=== PATIENT | female | born 1955 | race Caucasian/White ===

== ENCOUNTER 2018-02-01 10:41 | Outpatient (CLI) | payer MEDICARE | END 2018-02-01 10:42 | disposition home or self-care (01) | LOC: BICMRI 10:41 | PROVIDERS: ATTEND Ophthalmology | DX: S93.324A Dislocation of tarsometatarsal joint of right foot, initial encounter (principal); M19.071 Primary osteoarthritis, right ankle and foot ==

== ENCOUNTER 2018-02-02 11:06 | Outpatient (CLI) | payer MEDICARE | END 2018-02-02 11:07 | disposition home or self-care (01) | LOC: BICCT 11:06 | PROVIDERS: ATTEND Family Medicine | DX: F17.210 Nicotine dependence, cigarettes, uncomplicated (principal); J43.9 Emphysema, unspecified; I25.10 Atherosclerotic heart disease of native coronary artery without angina pectoris; I70.0 Atherosclerosis of aorta; Z98.890 Other specified postprocedural states; Z90.49 Acquired absence of other specified parts of digestive tract | CPT/HCPCS: G0297 ==

== ENCOUNTER 2018-03-20 22:11 | Emergency (ER) | payer MEDICARE ==
[2018-03-21 04:20] LABS: Anion Gap 19 mmol/L (10-20); BUN (Urea Nitrogen) 4 mg/dL (9.8-20.1); Calc. Creatinine Clearance 0 mL/min (70-130); Calcium 10.3 mg/dL (7.8-10.44); Carbon Dioxide 23 mmol/L (22-29); Chloride 101 mmol/L (98-107); Estimated GFR-MDRD 87; Glucose 112 mg/dL (70-105); Potassium 3.5 mmol/L (3.5-5.1); Sodium 139 mmol/L (136-145)
[2018-03-21 04:22] LABS: CKMB 2.1 ng/mL (0-6.6); Troponin I Less than 0.010 ng/mL (< 0.028)
[2018-03-21] MEDS ORDERED: cloNIDine 0.1 MG TAB ONE (04:40)
[2018-03-21 06:04] LABS: Troponin I Less than 0.010 ng/mL (< 0.028)
--- NOTE | 2018-03-21 09:23 | RAD ---
ONE VIEW CHEST: HISTORY: Hypertension. COMPARISON: 01/29/13. FINDINGS: Portable upright chest demonstrates a normal cardiac silhouette. The pulmonary vessels and hilum are normal. Costophrenic angles are clear. No masses or consolidation. No pneumothorax or osseous abn ormalities. IMPRESSION: No acute cardiopulmonary process. POS: [facility]
--- NOTE | 2018-03-22 14:15 | EKG ---
Test Reason : Blood Pressure : / mmHG Vent. Rate : 084 BPM Atrial Rate : 084 BPM P-R Int : 130 ms QRS Dur : 086 ms QT Int : 394 ms P-R-T Axes : 056 028 -38 degrees QTc Int : 465 ms Normal sinus rhythm Possible Left atrial enlargement Anterior infarct , age undetermined Abnormal ECG Confirmed by ANNA SANTANA ([id number]), international editorial producer MAHAD THORNTON ([id number]) on 03/22/2018 2:15:35 PM Referred By: Confirmed By:ANNA SANTANA
--- NOTE | 2018-03-22 14:15 | EKG ---
Test Reason : Blood Pressure : / mmHG Vent. Rate : 082 BPM Atrial Rate : 082 BPM P-R Int : 140 ms QRS Dur : 084 ms QT Int : 410 ms P-R-T Axes : 050 011 -23 degrees QTc Int : 479 ms Normal sinus rhythm Minimal voltage criteria for LVH, may be normal variant Anterior infarct , age undetermined Abnormal ECG Confirmed by ANNA SANTANA ([id number]), development editor MAHAD THORNTON ([id number]) on 03/22/2018 2:15:36 PM Referred By: HTN Confirmed By:ANNA SANTANA
== END 2018-03-21 05:30 | disposition home or self-care (01) ==
LOC: ERS 22:11
DX: I10 Essential (primary) hypertension (principal); I25.10 Atherosclerotic heart disease of native coronary artery without angina pectoris; E78.5 Hyperlipidemia, unspecified; J44.9 Chronic obstructive pulmonary disease, unspecified; F41.9 Anxiety disorder, unspecified; F17.210 Nicotine dependence, cigarettes, uncomplicated; Z79.899 Other long term (current) drug therapy; Z79.82 Long term (current) use of aspirin
CPT/HCPCS: 36415; 71045; 80048; 82553; 84484; 93005; 94760

== ENCOUNTER 2019-06-30 09:46 | Outpatient (CLI) | payer MEDICARE ==
--- NOTE | 2019-06-30 10:40 | MMO ---
Bilateral MAMMO Bilat Screen [facility]. CLINICAL HISTORY: Patient is 64 years old and is seen for screening. The patient has the following family history of breast cancer: mother. The patient has no personal history of cancer. VIEWS: The views performed were: bilateral craniocaudal with tomosynthesis and bilateral mediolateral oblique with tomosynthesis. FILMS COMPARED: The present examination has been compared to prior imaging studies performed at [facility] on 01/05/2012, at [facility] on 02/19/2016, and at [facility] on 08/02/2013. MAMMOGRAM FINDINGS: There are scattered fibroglandular densities. There is a stable intramammary lymph node seen in the upper-outer region of the right breast. There are no suspicious masses, suspicious calcifications, or new areas of architectural distortion. IMPRESSION: THERE IS NO MAMMOGRAPHIC EVIDENCE OF MALIGNANCY. A ROUTINE FOLLOW-UP MAMMOGRAM IN 1 YEAR IS RECOMMENDED. THE RESULTS OF THIS EXAM WERE SENT TO THE PATIENT. ACR BI-RADS Category 2 - Benign finding MAMMOGRAPHY NOTE: 1. A negative mammogram report should not delay a biopsy if a dominant of clinically suspicious mass is present. 2. Approximately 10% to 15% of breast cancers are not detected by mammography. 3. Adenosis and dense breasts may obscure an underlying neoplasm. Reported by: DANIEL TAYLOR MD Electonically Signed: [id number]
== END 2019-06-30 09:47 | disposition home or self-care (01) ==
LOC: BICMAMMO 09:46
PROVIDERS: ATTEND Family Medicine
DX: Z12.31 Encounter for screening mammogram for malignant neoplasm of breast (principal); Z80.9 Family history of malignant neoplasm, unspecified
CPT/HCPCS: 77063; 77067

== ENCOUNTER 2019-10-21 22:06 | Inpatient (IN) | payer MEDICARE ==
[2019-10-21] MEDS ORDERED: Magnesium 2 GM/50 ML BAG (IN WATER) ONE (22:40)
[2019-10-21] MEDS ORDERED: methylPREDNISolone Sod Succ/PF 125 MG/2 ML VIAL ONE (22:40)
--- NOTE | 2019-10-21 22:49 | RAD ---
Portable frontal chest radiograph: 10/21/2019 COMPARISON: 03/21/2018 HISTORY: Difficulty breathing FINDINGS: No focal consolidation or alveolar edema. Stable prominence of the cardiac silhouette. Post operative clips are noted in the right upper quadrant. There is faint atherosclerotic calcification of the aortic arch. IMPRESSION: No focal consolidation or alveolar edema.
[2019-10-21 22:55] LABS: #Basophils 0.1 thou/uL (0.0-0.2); #Eosinphils 0.4 thou/uL (0.0-0.7); #Lymphocytes 1.5 thou/uL (1.20-3.40); #Monocytes 0.8 thou/uL (0.11-0.59); #Neutrophils 8.7 thou/uL (1.40-6.50); %Basophils 0.5 % (0.0-1.0); %Eosinophils 3.1 % (0.0-10.0); %Lymphocytes 12.9 % (21.0-51.0); %Monocytes 7.2 % (0.0-10.0); %Neutrophils 76.3 % (42.0-75.0); Hemoglobin 12.8 g/dL (12.0-16.0); Mean Corpuscular HGB CONC 34.4 g/dL (32.0-36.0); Mean Corpuscular Hemoglobin 29.8 pg (27.0-31.0); Mean Corpuscular Volume 86.7 fL (78.0-98.0); Mean Platelet Volume 6.7 fL (7.4-10.4); Platelet Count 445 thou/uL (130-400); RBC Distribution Width 11.5 % (11.5-14.5); Red Blood Cell (RBC) Count 4.28 mill/uL (4.20-5.40); White Blood Cell (WBC) Count 11.4 thou/uL (4.8-10.8)
[2019-10-21] MEDS ORDERED: Ondansetron ODT 4 MG TAB ONE (23:15)
[2019-10-21 23:19] LABS: ALT (SGPT) 14 U/L (8-55); AST (SGOT) 20 U/L (5-34); Albumin 3.9 g/dL (3.4-4.8); Alkaline Phosphatase 83 U/L (40-110); Anion Gap 16 mmol/L (10-20); BUN (Urea Nitrogen) 5 mg/dL (9.8-20.1); Bilirubin, Total 0.6 mg/dL (0.2-1.2); Calc. Creatinine Clearance 0 mL/min (70-130); Calcium 8.9 mg/dL (7.8-10.44); Carbon Dioxide 24 mmol/L (23-31); Chloride 100 mmol/L (98-107); Estimated GFR-MDRD 82; Globulin 3.2 g/dL (2.4-3.5); Glucose 105 mg/dL (80-115); Lipase 9 U/L (8-78); Magnesium 1.9 mg/dL (1.6-2.6); Potassium 4.1 mmol/L (3.5-5.1); Protein, Total 7.1 g/dL (6.0-8.3); Sodium 136 mmol/L (136-145)
[2019-10-21 23:39] LABS: CKMB 0.6 ng/mL (0-6.6)
[2019-10-22 03:00] LABS: Troponin I Less than 0.010 ng/mL (< 0.028)
[2019-10-22] MEDS ORDERED: Lactated Ringer's 1,000 ML IV SCH (05:45)
[2019-10-22 06:14] VITALS: BMI 37.8
[2019-10-22 06:35] LABS: Troponin I 0.037 ng/mL (< 0.028)
--- NOTE | 2019-10-22 07:58 | CT ---
PRELIMINARY REPORT/[facility]/EMERGENCY AFTER HOURS PROCEDURE EXAM: CTA Chest with Intravenous Contrast CLINICAL HISTORY: ELEVATED D-DIMER: 1.33; 64F reports to ED c/o SOB and difficulty breathing. PMHx CO PD and asthma. nausea, lack of appetite for several weeks. Pt denies nausea. Pt reports she has an ap pointment with GI PA on 10/25, referral from PCP. 85% on RA, 99 after duo neb. PMSx cholecystectomy TECHNIQUE: Axial CTA images of the chest with intravenous contrast. MIP reconstructed images were cre ated and reviewed. IV leak during injection reported by the technologist.. Exam DLP is 589.85. CONTRAST: With; 95ML ISOVUE 370 intravenous. COMPARISON: None provided. FINDINGS: PULMONARY ARTERIES: Contrast bolus not adequate for detection of small subsegmental PE. There are no large pulmonary artery filling defects suspicious for PE. AORTA: Aberrant right subclavian artery posterior to the esophagus with diverticulum and coverall. Sc lerosis of the thoracic aorta without aneurysm. LUNGS: Bibasilar atelectasis. No lung mass or focal consolidation. Bilateral apical upper lobe emphys ematous changes. PLEURAL SPACES: No pleural effusion. No pneumothorax. HEART AND MEDIASTINUM:Prominent mediastinal and hilar adenopathy. Cardiomegaly. Coronary atherosclerosis with stents. LYMPH NODES No lymphadenopathy. BONES: Mild multilevel degenerative changes of the spine. No acute fractures or worrisome osseous les ions. CHEST WALL AND UPPER ABDOMEN: Images through the upper abdomen are unremarkable. The chest wall is un remarkable. MISCELLANEOUS: 7 mm left thyroid nodule. IMPRESSION: 1. No evidence of large pulmonary embolism. 2. Coronary artery disease. 3. Aberrant right subclavian artery with retroesophageal course. This can lead to symptoms of Dysph agia (lusoria), dyspnea, or back pain. 4. COPD without focal consolidation. ELECTRONICALLY SIGNED BY: Preet Granados M.D. Oct 22, 2019 1:52:44 AM PROFESSIONAL SOCCER PLAYER FINAL REPORT EMERGENT AFTER HOURS CTA OF THE CHEST WITH CONTRAST: COMPARISON: 12/25/2015. FINDINGS/IMPRESSION: I agree with the findings and impression given in the preliminary report per [facility] physici an. 1. There is no evidence of large pulmonary thromboembolism. This study is limited secondary to an I V leak during the contrast administration. 2. There is an aberrant right subclavian artery.
[2019-10-22] MEDS ORDERED: HYDROcodone/Acetaminophen 5/325 mg Tablet PO PRN (09:53)
[2019-10-22] MEDS ORDERED: Senokot S 8.6-50 MG TAB PO PRN (09:53)
[2019-10-22] MEDS ORDERED: Acetaminophen 325 MG TAB PO PRN (09:53)
[2019-10-22] MEDS ORDERED: Ondansetron PF 4 MG/2 ML Vial IVP PRN (09:53)
[2019-10-22] MEDS ORDERED: Ondansetron ODT 4 MG TAB PO PRN (09:53)
[2019-10-22] MEDS ORDERED: ALPRAZolam 0.25 MG TAB PO PRN (09:57)
[2019-10-22] MEDS ORDERED: Gabapentin 100 MG CAP PO PRN (09:57)
[2019-10-22] MEDS ORDERED: Enoxaparin Sodium 40 MG/0.4 ML SYRINGE SC SCH (10:00)
[2019-10-22] MEDS ORDERED: guaiFENesin ER 600 MG TAB PO SCH (10:30)
[2019-10-22] MEDS: ALPRAZolam 0.25 MG TAB PO PRN (17:26)
[2019-10-22 17:33] LABS: Troponin I 0.022 ng/mL (< 0.028)
[2019-10-22] MEDS: Meclizine HCl 25 MG TAB PO SCH (20:15)
[2019-10-22] MEDS: Hydroxychloroquine Sulfate 200 MG TAB PO SCH (20:15)
[2019-10-22] MEDS: guaiFENesin ER 600 MG TAB PO SCH (20:15)
[2019-10-22] MEDS: Doxycycline 100 MG CAP PO SCH (20:15)
[2019-10-22] MEDS: Famotidine/PF 20 mg/2ml Vial SLOW IVP SCH (20:16)
[2019-10-22] MEDS: Famotidine 20 MG TAB PO SCH (20:16)
[2019-10-22] MEDS: [UNRECOGNIZED DRUG - OTHER] PO SCH (20:18)
[2019-10-22] MEDS ORDERED: Nortriptyline 10 MG CAP PO SCH (21:00)
[2019-10-22 23:19] LABS: Troponin I 0.077 ng/mL (< 0.028)
[2019-10-23 05:35] LABS: #Lymphocytes 1.3 thou/uL (1.20-3.40); #Neutrophils 10.8 thou/uL (1.40-6.50); %Basophils 0.1 % (0.0-1.0); %Eosinophils 0.3 % (0.0-10.0); %Lymphocytes 9.7 % (21.0-51.0); %Monocytes 7.3 % (0.0-10.0); %Neutrophils 82.6 % (42.0-75.0); Hemoglobin 11.3 g/dL (12.0-16.0); Mean Corpuscular HGB CONC 34.1 g/dL (32.0-36.0); Mean Corpuscular Hemoglobin 29.8 pg (27.0-31.0); Mean Corpuscular Volume 87.2 fL (78.0-98.0); Mean Platelet Volume 6.7 fL (7.4-10.4); Platelet Count 407 thou/uL (130-400); RBC Distribution Width 11.5 % (11.5-14.5); Red Blood Cell (RBC) Count 3.79 mill/uL (4.20-5.40)
[2019-10-23 05:55] LABS: Anion Gap 12 mmol/L (10-20); BUN (Urea Nitrogen) 6 mg/dL (9.8-20.1); Calc. Creatinine Clearance 164 mL/min (70-130); Calcium 8.8 mg/dL (7.8-10.44); Carbon Dioxide 25 mmol/L (23-31); Chloride 105 mmol/L (98-107); Estimated GFR-MDRD Greater than 90; Glucose 99 mg/dL (80-115); Potassium 4.2 mmol/L (3.5-5.1); Sodium 138 mmol/L (136-145)
[2019-10-23] MEDS: [UNRECOGNIZED DRUG - OTHER] PO SCH ×2 (08:43→20:40)
[2019-10-23] MEDS: Famotidine 20 MG TAB PO SCH ×2 (09:42→22:01)
[2019-10-23] MEDS: Enoxaparin Sodium 40 MG/0.4 ML SYRINGE SC SCH (09:43)
[2019-10-23] MEDS: guaiFENesin ER 600 MG TAB PO SCH ×2 (09:43→21:55)
[2019-10-23] MEDS: Doxycycline 100 MG CAP PO SCH ×2 (09:43→21:55)
[2019-10-23] MEDS: Hydroxychloroquine Sulfate 200 MG TAB PO SCH ×2 (09:43→21:55)
[2019-10-23] MEDS: Aspirin 81 mg Enteric Coated Tablet PO SCH (09:43)
[2019-10-23] MEDS: Famotidine/PF 20 mg/2ml Vial SLOW IVP SCH ×2 (09:43→22:01)
[2019-10-23] MEDS: predniSONE 20 MG TAB PO SCH (09:43)
[2019-10-23] MEDS: Nortriptyline HCl 25 MG CAP PO SCH (21:54)
[2019-10-23] MEDS: Nortriptyline 10 MG CAP PO SCH (21:55)
[2019-10-23] MEDS: Meclizine HCl 25 MG TAB PO SCH (21:56)
[2019-10-23] MEDS: ALPRAZolam 0.25 MG TAB PO PRN (21:58)
[2019-10-24 05:33] LABS: Troponin I 0.078 ng/mL (< 0.028)
--- NOTE | 2019-10-24 08:14 | PRG ---
DATE OF SERVICE: 10/23/2019 SUBJECTIVE: A 64-year-old female with COPD and coronary artery disease, admitted due to worsening shortness of breath. The patient also was found to be hypoxic and was started on oxygen supplementation. Impression of COPD exacerbation was made, and the patient was started on antibiotics, bronchodilators, and steroid. Troponin was also found to be elevated. Feeling better. Denied fever. OBJECTIVE: VITAL SIGNS: Temperature 98.9, pulse 100, respiratory rate 16, SpO2 of 94% on 3 L nasal cannula, blood pressure 132/72. GENERAL: Female, in no obvious distress. Afebrile. Anicteric. Acyanotic. HEENT: Normocephalic, atraumatic. Oral mucosa is moist. CARDIOVASCULAR: Regular rhythm and rate with normal heart sounds 1 and 2. RESPIRATORY: Fair air entry bilaterally with some transmitted breath sounds. Work of breathing is not increased. GI: Obese, soft, nontender, nondistended with normal bowel sounds. EXTREMITIES: Grossly normal looking atraumatic with no obvious edema or erythema. TOOTH CUTTER CONTACT WHEEL: Conscious, alert, and oriented x3 with appropriate mental status. Cranial nerves 2 through 12 are grossly intact. DIAGNOSTIC DATA: CBC showed WBC count of 13.0, hemoglobin of 11.3, MCV of 87.2, platelets of 407. BMP showed sodium 138, potassium 4.2, chloride 105, CO2 of 25, BUN 6, creatinine 0.58, glucose 99, calcium 8.8. Troponin has been up and down with some numbers being less than 0.010 with others being up to 0.077. ASSESSMENT: 1. Acute respiratory failure with hypoxia. 2. Chronic obstructive pulmonary disease with acute exacerbation. 3. Coronary artery disease, status post myocardial infarction in the past. 4. Obesity. 5. Chronic pain. 6. Prior history of Clostridium difficile, status post fecal transplant. 7. Hypertension. PLAN: 1. Continue bronchodilators, antibiotics, and steroids. 2. Continue probiotics as well. 3. Get echocardiogram in view of mildly elevated troponin. We will also plan to get nuclear stress test. 4. Further treatment to follow depending on hospital course. 5. Wean oxygen as tolerated. Job ID: [id number]
[2019-10-24 08:57] LABS: Anion Gap 14 mmol/L (10-20); BUN (Urea Nitrogen) 7 mg/dL (9.8-20.1); Calc. Creatinine Clearance 164 mL/min (70-130); Calcium 9.2 mg/dL (7.8-10.44); Carbon Dioxide 26 mmol/L (23-31); Chloride 102 mmol/L (98-107); Estimated GFR-MDRD Greater than 90; Glucose 61 mg/dL (80-115); Sodium 138 mmol/L (136-145)
[2019-10-24] MEDS: [UNRECOGNIZED DRUG - OTHER] PO SCH ×2 (09:07→20:12)
[2019-10-24] MEDS: Aspirin 81 mg Enteric Coated Tablet PO SCH (10:55)
[2019-10-24] MEDS: Famotidine 20 MG TAB PO SCH ×2 (10:55→21:21)
[2019-10-24] MEDS: Doxycycline 100 MG CAP PO SCH ×2 (10:55→21:16)
[2019-10-24] MEDS: Famotidine/PF 20 mg/2ml Vial SLOW IVP SCH ×2 (10:55→21:21)
[2019-10-24] MEDS: ALPRAZolam 0.25 MG TAB PO PRN (10:56)
[2019-10-24] MEDS: Hydroxychloroquine Sulfate 200 MG TAB PO SCH ×2 (10:56→21:16)
[2019-10-24] MEDS: Enoxaparin Sodium 40 MG/0.4 ML SYRINGE SC SCH (10:56)
[2019-10-24] MEDS: guaiFENesin ER 600 MG TAB PO SCH ×2 (10:56→21:15)
[2019-10-24] MEDS: predniSONE 20 MG TAB PO SCH (10:56)
[2019-10-24] MEDS ORDERED: Famotidine 20 MG TAB PO SCH (14:00)
--- NOTE | 2019-10-24 14:30 | HP ---
PRIMARY CARE PHYSICIAN: Dr. Stefani Lutz. CHIEF COMPLAINT: Worsening shortness of breath and difficulty breathing. HISTORY OF PRESENT ILLNESS: A 64-year-old female with known history of rheumatoid arthritis; psoriasis; COPD; coronary artery disease, status post stent placement; hypertension amongst others; who was brought in by EMS due to worsening shortness of breath and difficulty breathing since 1 week prior to presentation. The patient reported worsening shortness of breath and difficulty breathing as well as cough, generalized malaise and poor oral intake since about a week, which got worse, necessitating the EMS call. The patient was found to be hypoxic when EMS arrived with SpO2 of 85 on room air. She was also noted to be wheezing and was treated with DuoNeb with improvement to 90 SpO2 on room air. The patient was subsequently brought to the ER. There was no history of fever. The patient admitted to subjective chills, nausea, but no vomiting, or diarrhea. She also denied chest pain, palpitations, focal weakness, change in bowel habit, dysuria, hematuria, or leg swelling. On presentation to the ER, patient was found to be tachycardic with heart rate of 103 with initial temperature of 100.3, and SpO2 of 89 on room air. The patient was treated with IV fluid, azithromycin, doxycycline, magnesium sulfate, DuoNeb, and methyl prednisone as well as Zofran and admitted for further evaluation and treatment. Due to worsening shortness of breath and negative chest x-ray on presentation, there was a concern for pulmonary embolism. Hence, the patient had CT angio chest, which however was negative for large pulmonary embolism. Our study was limited due to poor injection. The patient is currently on oxygen and reports feeling a lot better. Cough has been dry and nonproductive. PAST MEDICAL HISTORY: 1. Rheumatoid arthritis. 2. Psoriasis. 3. Coronary artery disease, status post stent placement. 4. Hypertension. 5. COPD. 6. C diff, status post fecal transplant. 7. Anxiety. 8. Obesity. PAST SURGICAL HISTORY: 1. Cholecystectomy. 2. Tubal ligation. 3. Hernia repair. 4. . 5. Cardiac catheterization. FAMILY HISTORY: Significant for coronary artery disease, COPD in both parents. Mother also had breast cancer. SOCIAL HISTORY: The patient lives alone. She is a former smoker that quit about eight months ago. Denied recreational drug use or alcohol. The patient wants to be full code with son being the surrogate decision maker. ALLERGIES AND ADVERSE REACTION: 1. Propoxyphene. 2. Amoxicillin. 3. Bupropion. 4. Fluoxetine. 5. Levofloxacin. 6. Sulfamethazine. 7. Bupropion. 8. Nitrofurantoin. 9. Trimethoprim. HOME MEDICATIONS: 1. Albuterol HFA every 6 hours p.r.n. for shortness of breath. 2. Xanax 0.25 mg p.o. p.r.n. 3. Amlodipine 2.5 mg p.o. daily. 4. Aspirin 81 mg p.o. daily. 5. Clonidine 0.1 mg p.o. p.r.n. for elevation in blood pressure. 6. Gabapentin 100 mg p.o. daily p.r.n. 7. Hydroxychloroquine 200 mg p.o. b.i.d. 8. L. Rhamnosus and Culturelle Probiotics 1 capsule p.o. b.i.d. 9. Lisinopril 40 mg p.o. b.i.d. 10. Meclizine 25 mg p.o. daily at bedtime. 11. p.o. daily at p.m. REVIEW OF SYSTEMS: A 12-point review of system performed was negative other than pertinent positives and negatives included in the history of present illness. PHYSICAL EXAMINATION: VITAL SIGNS: Temperature 97.5, pulse 90, respiratory rate 18, SpO2 of 95% on 4 L nasal cannula, blood pressure is 101/56. GENERAL: Obese female, in no obvious distress. Afebrile. Anicteric. Acyanotic. HEENT: Normocephalic, atraumatic. Oral mucosa is mildly dry. NECK: Supple. Symmetrical with no JVD. CARDIOVASCULAR: Regular rhythm and rate with normal heart sounds S1 and S2. RESPIRATORY: Fair air entry bilaterally with few transmitted breath sounds. No obvious rhonchi were appreciated. Work of breathing is not increased. GI: Obese, soft, nontender, nondistended with normal bowel sounds. EXTREMITIES: Grossly normal looking, atraumatic with no obvious edema or erythema. Distal pulses are palpable. PRODUCTION OPERATIONS INSPECTOR: Conscious, alert, oriented x3 with appropriate mental status. Cranial nerves 2 through 12 are grossly intact. The patient moves all extremities. DIAGNOSTIC DATA: CBC showed WBC count of 11.4, hemoglobin of 12.8, MCV of 86.7, platelet of 445. Neutrophil percent is 76.3 with lymphocyte percentage of 12.9. D-dimer was elevated at 1.33. CMP showed sodium 136, potassium 4.1, chloride 100, CO2 of 24, BUN 5, creatinine 0.72, glucose 105, calcium 8.9. Total bilirubin 0.6, AST 20, ALT 14, alkaline phosphatase 83, total protein 7.1, albumin 3.9, globulin 3.2. Lipase 9. Magnesium 1.9. Initial cardiac enzymes showed CK-MB of 0.6, troponin of 0.035. Repeat troponin 8 hours later was 0.010, but subsequent troponin 3 hours later was 0.037. Chest x-ray showed no focal consolidation or alveolar edema. A CT angio chest with contrast showed no evidence of large pulmonary embolism. Study was said to be limited secondary to IV leak during the contrast administration. Coronary artery disease. Aberrancy subclavian artery with retroesophageal cause as well as COPD without focal consolidation were noted. ASSESSMENT: 1. Acute respiratory failure with hypoxia. 2. Chronic obstructive pulmonary disease with acute exacerbation. 3. Rheumatoid arthritis, on treatment. 4. Psoriasis. 5. Coronary artery disease with prior stent placement. 6. Elevated troponin: Most likely demand ischemia. 7. Prior history of Clostridium difficile, status post fecal transplant. PLAN: 1. We will continue doxycycline as well as bronchodilators and steroids. 2. IV fluid therapy will be provided given that the patient is clinically dry. 3. We will continue oxygen therapy and wean as tolerated. 4. DVT prophylaxis with Lovenox will be commenced. 5. We will restart Plaquenil. 6. We will hold antihypertensives for now as blood pressure is soft. 7. Probiotic will be continued given prior history of C difficile. 8. Code status full code. 9. Son is the surrogate decision maker. 10. Further treatment to follow depending on hospital course. Job ID: [id number]
--- NOTE | 2019-10-24 16:04 | PDOC.HOSPP ---
- Subjective Encounter Date: 10/24/19 Encounter Time: 14:01 Subjective: 64 y/o female with CAD, RA, Psoriasis and COPD admitted with worsening SOB. Found to be hypoxic and treated with oxygen, bronchodilators and steroid with improvement. Still requiring oxygen. Also noted to have troponin elevation. Had Stress test earlier today result of which is pending. Feeling better. - Objective Vital Signs & Weight: Vital Signs (12 hours) Temp Pulse Resp BP BP Pulse Ox 10/24/19 15:50 97.5 F L 97 16 140/75 97 10/24/19 13:39 97.5 F L 108 H 18 137/66 76 L 10/24/19 08:08 95 10/24/19 07:40 92 L 10/24/19 07:36 98.1 F 95 18 112/70 95 10/24/19 04:23 148/76 H Weight Admit Weight 227 lb 1.6 oz Weight 227 lb 1.6 oz I&O: 10/23/19 10/24/19 10/25/19 06:59 06:59 06:59 Intake Total 2016 1139 Output Total 1499 1999 600 Balance 517 -860 -600 Result Diagrams: 10/23/19 05:21 10/24/19 04:44 Hospitalist ROS - Medication Medications: Active Medications Generic Name Dose Route Start Last Admin Trade Name Freq PRN Reason Stop Dose Admin Hydrocodone Bitart/Acetaminophen 1 tab 10/22/19 09:53 10/24/19 10:56 [place] 5/325 PO 1 tab Q4H PRN Administration Moderate Pain (4-6) Albuterol/Ipratropium 3 ml 10/22/19 09:53 10/23/19 19:49 Duoneb NEB 3 ml Q4H PRN Administration SOB &/or Wheezing Alprazolam 0.25 mg 10/22/19 16:14 10/24/19 10:56 Xanax PO 0.25 mg DAILYPRN PRN Administration Anxiety Aspirin 81 mg 10/23/19 09:00 10/24/19 10:55 Ecotrin PO 81 mg DAILY TIA Administration Doxycycline Hyclate 100 mg 10/22/19 21:00 10/24/19 10:55 Vibramycin PO 100 mg BID TIA Administration Enoxaparin Sodium 40 mg 10/23/19 09:00 10/24/19 10:56 Lovenox SC 40 mg 0900 TIA Administration Famotidine 20 mg 10/22/19 21:00 10/23/19 22:01 Pepcid SLOW IVP Not Given Q12HR TIA Famotidine 20 mg 10/22/19 21:00 10/23/19 22:01 Pepcid PO Not Given BID TIA Guaifenesin 600 mg 10/22/19 21:00 10/24/19 10:56 Mucinex PO 600 mg Q12HR TIA Administration Hydroxychloroquine Sulfate 200 mg 10/22/19 21:00 10/24/19 10:56 Plaquenil PO 200 mg BID TIA Administration Meclizine HCl 25 mg 10/22/19 21:00 10/23/19 21:56 Antivert PO 25 mg QPM TIA Administration Nortriptyline HCl 20 mg 10/23/19 21:00 10/23/19 21:55 Pamelor PO 20 mg HS TIA Administration Nortriptyline HCl 25 mg 10/23/19 21:00 10/23/19 21:54 Pamelor PO 25 mg HS TIA Administration Ondansetron HCl 4 mg 10/22/19 09:53 10/24/19 12:35 Zofran IVP 4 mg Q6H PRN Administration Nausea/Vomiting Culterelle Probiotic 0 each 10/22/19 21:00 10/24/19 09:07 Capsule PO 1 each BID TIA Administration Prednisone 40 mg 10/23/19 09:00 10/24/19 10:56 Prednisone PO 40 mg DAILY TIA Administration - Exam General Appearance: awake alert General - other findings: obese, no distress Eye: anicteric sclera ENT: normocephalic atraumatic Neck: supple, symmetric, no JVD Heart: RRR Respiratory: no wheezes, no rales, no ronchi, normal chest expansion Gastrointestinal: soft, non-tender, non-distended Gastrointestinal - other findings: obese Extremities: no cyanosis, no edema Neurological: cranial nerve grossly intact, no focal deficits Psychiatric: A&O x 3 Hosp A/P (1) Acute respiratory failure with hypoxia Code(s): J96.01 - ACUTE RESPIRATORY FAILURE WITH HYPOXIA Status: Acute (2) COPD with acute exacerbation Code(s): J44.1 - CHRONIC OBSTRUCTIVE PULMONARY DISEASE W (ACUTE) EXACERBATION Status: Acute (3) Elevated troponin Code(s): R79.89 - OTHER SPECIFIED ABNORMAL FINDINGS OF BLOOD CHEMISTRY Status : Acute (4) CAD (coronary artery disease) Code(s): I25.10 - ATHSCL HEART DISEASE OF [place] CORONARY ARTERY W/O ANG PCTRS Status: Acute (5) Rheumatoid arthritis Code(s): M06.9 - RHEUMATOID ARTHRITIS, UNSPECIFIED Status: Acute (6) Psoriasis Code(s): L40.9 - PSORIASIS, UNSPECIFIED Status: Acute (7) Obesity (BMI 35.0-39.9 without comorbidity) Code(s): E66.9 - OBESITY, UNSPECIFIED Status: Acute - Plan Continue oxygen, steroid and bronchodilators Wean oxygen as tolerated. Await stress test report Continue other treatments.
[2019-10-24] MEDS ORDERED: Regadenoson 0.4 MG/5 ML SYRINGE ONE (16:25)
--- NOTE | 2019-10-24 18:04 | CON ---
DATE OF CONSULTATION: INDICATION FOR CONSULTATION: A 64-year-old female, who presented with chest pain, somewhat atypical, mainly due to her coughing she thinks. Even this lady is 64-year-old, she has undergone angioplasty and stent placement in the past, I believe back in [place]. At that time, she also had a cardiac catheterization in 2017, which showed a 40% restenosis of left anterior descending artery, 50% ostial stenosis of the right coronary artery, and 80% to 90% stenosis of a ramus branch, in which she underwent successful angioplasty in 2017 I believe. She was seen in the office last in March of 2018. She normally follows up with Dr. Daron Rogers, but she apparently lives closer to [facility] and was admitted after she complains of chest discomfort at this time. Her enzymes have been indeterminate. First set of enzymes were normal essentially and then they have fluctuated up to the highest I have seen is 0.078 and the lowest was 0.01 and she actually was 0.035, went down to 0.01 and then back up to 0.37. Her BNP was 25. She says her pain is worse when she coughs. It has been worse over the last couple weeks and she eventually presented to the hospital due to the coughing and has been on oxygen also. She has no oxygen at home. She says she has been short of breath with exertion, but no shortness of breath while she is at rest. She describes her chest discomfort as being heavy, but no actual chest pain. She complains also having fatigue and gets actually very little exercise. She was scheduled to see Dr. Rogers in October of this year. She mainly complains of a decreased appetite and just not feeling well. Otherwise, her EKG has been unremarkable here, has no indication of ischemia. She is undergoing a stress test, the first half will be performed today and the other half will be tomorrow due to her size. Otherwise, she had no complaints from a cardiac standpoint. PAST MEDICAL HISTORY: Significant for the coronary artery disease, stent placement. She has history of varicose veins, COPD, and hypertension. ALLERGIES: SHE HAS MULTIPLE ALLERGIES, WHICH INCLUDE NITROFURANTOIN MACROCRYSTALLINE, LEVOFLOXACIN, METRONIDAZOLE, BUPROPION, FLUOXETINE, SULFA, SULFONAMIDE ANTIBIOTICS, AMOXICILLIN, AND TRIMETHOPRIM/SULFAMETHOXAZOLE. FAMILY HISTORY: Unremarkable for any early heart disease. SOCIAL HISTORY: I believe she smoked in the past, but has not smoked for recently. She has one child alive and well. Previously, she smoked every day. She smoked for several years. REVIEW OF SYSTEMS: Her 12-point review of systems unremarkable except what was noted in the history of present illness. PHYSICAL EXAMINATION: GENERAL: Reveals a well-developed, well-nourished female, who is in no acute distress at this time. VITAL SIGNS: Blood pressure is 112/70, heart rate is 95 and it shows a sinus rhythm, temperature is 98.1, and respiratory rate is 18. HEENT: Shows head to be normocephalic and atraumatic. Carotid pulses are present without any bruits. CHEST: Her chest has some decreased breath sounds and some left basilar rales. CARDIOVASCULAR: Reveals a regular rate and rhythm with no gross murmurs. ABDOMEN: Obese with positive bowel sounds. EXTREMITIES: Show no clubbing, cyanosis, or edema. Pedal pulses are present. There is no edema. NEUROLOGIC: She appears to be unremarkable. She has had no acute changes otherwise. IMPRESSION AND PLAN: 1. Chronic obstructive pulmonary disease with increased coughing and chest discomfort, but no indication she suffered a myocardial infarction yet. Enzymes are still negative. We will plan for continuation of the stress test to determine if there is any evidence of ischemia. If so, she may need to undergo further evaluation due to her history of coronary artery disease. 2. Coronary artery disease, which is as above. We will proceed with stress testing. 3. Hypertension. This is under good control at this time. We will continue the present medications. 4. History of chronic obstructive pulmonary disease. She says she has restrictive lung disease. She has smoked two packs a day for about 30 years. When I last saw her in 2018, she actually was still smoking, but she says she has stopped smoking recently. 5. Obesity, which is pretty much unchanged from her last visit. At this time, we are more than happy to continue to follow you, but further recommendations will depend on the results of the stress test. Job ID: [id number]
[2019-10-24] MEDS: Nortriptyline HCl 25 MG CAP PO SCH (21:15)
[2019-10-24] MEDS: Nortriptyline 10 MG CAP PO SCH (21:15)
[2019-10-24] MEDS: Meclizine HCl 25 MG TAB PO SCH (21:16)
[2019-10-25 04:58] LABS: Hemoglobin 12.2 g/dL (12.0-16.0); Mean Corpuscular HGB CONC 31.7 g/dL (32.0-36.0); Mean Corpuscular Hemoglobin 27.8 pg (27.0-31.0); Mean Corpuscular Volume 87.8 fL (78.0-98.0); Mean Platelet Volume 6.6 fL (7.4-10.4); Platelet Count 488 thou/uL (130-400); RBC Distribution Width 11.6 % (11.5-14.5); White Blood Cell (WBC) Count 10.3 thou/uL (4.8-10.8)
--- NOTE | 2019-10-25 09:31 | NM ---
EXAM: CARDIAC SPECT HISTORY: Chest pain, coronary artery disease, stent, COPD, hypertension TECHNIQUE: A myocardial perfusion scan was performed using the single isotope 2 day protocol with ozzie hnetium 99m sestamibi. [31 mCi] was injected intravenously for the rest exam followed by 32 mCifor the stress study. Pharmacologic stress with Lexiscan was monitored and interpreted by Dr. Wakefield FINDINGS: A fixed defect is seen in the apex. There is a small defect in the distal anteroseptal wall on stress images with incomplete reversibility at rest Gated SPECT LVEF: 43% Wall motion exam: Global hypokinesis IMPRESSION: Partially reversible ischemia in the distal anteroseptal wall.
[2019-10-25] MEDS: [UNRECOGNIZED DRUG - OTHER] PO SCH ×2 (10:20→20:43)
[2019-10-25] MEDS: guaiFENesin ER 600 MG TAB PO SCH ×2 (11:31→21:42)
[2019-10-25] MEDS: Doxycycline 100 MG CAP PO SCH ×2 (11:31→21:42)
[2019-10-25] MEDS: Aspirin 81 mg Enteric Coated Tablet PO SCH (11:31)
[2019-10-25] MEDS: predniSONE 20 MG TAB PO SCH (11:32)
[2019-10-25] MEDS: Hydroxychloroquine Sulfate 200 MG TAB PO SCH ×2 (11:32→21:42)
[2019-10-25] MEDS: Enoxaparin Sodium 40 MG/0.4 ML SYRINGE SC SCH (11:32)
[2019-10-25] MEDS: Famotidine 20 MG TAB PO SCH ×3 (11:33→21:50)
[2019-10-25] MEDS: Famotidine/PF 20 mg/2ml Vial SLOW IVP SCH ×2 (11:33→20:40)
[2019-10-25] MEDS: ALPRAZolam 0.25 MG TAB PO PRN (13:27)
--- NOTE | 2019-10-25 14:25 | PDOC.CPN ---
- Subjective Date: 10/25/19 Time: 14:28 Interval history: the pt seen and examined. No overnight events. No cardiac complaints. - Objective Allergies/Adverse Reactions: Allergies Allergy/AdvReac Type Severity Reaction Status Date / Time propoxyphene HCl Allergy Severe SHORTNESS Verified 10/22/19 06:24 [From Darvon] OF BREATH amoxicillin [Amoxicillin] Allergy Intermediate Verified 10/22/19 06:24 bupropion HCl [From Zyban] Allergy Intermediate Verified 10/22/19 06:24 fluoxetine Allergy Intermediate Verified 10/22/19 06:24 levofloxacin [From Levaquin] Allergy Intermediate "C-DIFF" Verified 10/22/19 06: 24 sulfamethoxazole Allergy Intermediate Verified 10/22/19 06:24 [From Bactrim] bupropion Allergy Verified 10/22/19 06:24 nitrofurantoin Allergy Verified 10/22/19 06:24 [From Furadantin] nitrofurantoin Allergy Verified 10/22/19 06:24 macrocrystalline [From Macrobid] Sulfa (Sulfonamide Allergy Verified 10/22/19 06:24 Antibiotics) trimethoprim [From Bactrim] Allergy Verified 10/22/19 06:24 Visit Medications: Current Medications Acetaminophen (Tylenol) 650 mg PO Q4H PRN PRN Reason: Headache/Fever/Mild Pain (1-3) Hydrocodone Bitart/Acetaminophen ([place] 5/325) 1 tab PO Q4H PRN PRN Reason: Moderate Pain (4-6) Last Admin: 10/24/19 10:56 Dose: 1 tab Albuterol/Ipratropium (Duoneb) 3 ml NEB Q4H PRN PRN Reason: SOB &/or Wheezing Last Admin: 10/23/19 19:49 Dose: 3 ml Albuterol/Ipratropium (Duoneb) 3 ml NEB [id number] PRN PRN Reason: SOB &/or Wheezing Alprazolam (Xanax) 0.25 mg PO DAILYPRN PRN PRN Reason: Anxiety Last Admin: 10/25/19 13:27 Dose: 0.25 mg Aspirin (Ecotrin) 81 mg PO DAILY [facility] Last Admin: 10/25/19 11:31 Dose: 81 mg Doxycycline Hyclate (Vibramycin) 100 mg PO BID [facility] Last Admin: 10/25/19 11:31 Dose: 100 mg Enoxaparin Sodium (Lovenox) 40 mg SC 0900 [facility] Last Admin: 10/25/19 11:32 Dose: 40 mg Famotidine (Pepcid) 20 mg SLOW IVP Q12HR [facility] Last Admin: 10/25/19 11:33 Dose: Not Given Famotidine (Pepcid) 20 mg PO BID [facility] Last Admin: 10/25/19 11:33 Dose: Not Given Gabapentin (Neurontin) 100 mg PO DAILYPRN PRN PRN Reason: Pain Guaifenesin (Mucinex) 600 mg PO Q12HR [facility] Last Admin: 10/25/19 11:31 Dose: 600 mg Hydroxychloroquine Sulfate (Plaquenil) 200 mg PO BID [facility] Last Admin: 10/25/19 11:32 Dose: 200 mg Meclizine HCl (Antivert) 25 mg PO QPM [facility] Last Admin: 10/24/19 21:16 Dose: 25 mg Nortriptyline HCl (Pamelor) 20 mg PO HS [facility] Last Admin: 10/24/19 21:15 Dose: 20 mg Nortriptyline HCl (Pamelor) 25 mg PO HS [facility] Last Admin: 10/24/19 21:15 Dose: 25 mg Ondansetron HCl (Zofran Odt) 4 mg PO Q6H PRN PRN Reason: Nausea/Vomiting Ondansetron HCl (Zofran) 4 mg IVP Q6H PRN PRN Reason: Nausea/Vomiting Last Admin: 10/24/19 12:35 Dose: 4 mg Culterelle Probiotic (Capsule) 0 each PO BID [facility] Last Admin: 10/25/19 10:20 Dose: 1 each Prednisone (Prednisone) 40 mg PO DAILY [facility] Last Admin: 10/25/19 11:32 Dose: 40 mg Senna/Docusate Sodium (Senokot S) 2 tab PO BID PRN PRN Reason: Constipation Vital Signs & Weight: Vital Signs Temp Pulse Resp BP Pulse Ox 10/25/19 11:43 97.7 F 106 H 18 142/69 H 91 L 10/25/19 08:04 95 10/25/19 07:48 97.7 F 83 16 140/65 95 10/25/19 04:00 97.6 F 95 16 149/77 H 97 Admit Weight 227 lb 1.6 oz Weight 227 lb 1.6 oz - Physical Exam General: alert & oriented x3 HEENT: mucus membranes moist Neck: supple neck Cardiac: regular rate and rhythm, S1/S2 Lungs: decreased breath sounds Neuro: cranial nerve 2-12 intact - Labs Result Diagrams: 10/25/19 04:48 10/24/19 04:44 Troponin/CKMB CK-MB (CK-2) 0.6 ng/mL (0-6.6) 10/21/19 22:42 Troponin I 0.078 ng/mL (< 0.028) H 10/24/19 04:44 - Telemetry Sinus rhythms and dysrhythmias: sinus rhythm - Assessment/Plan Assessment/Plan: 1. Elevated trop - stress test showed partially reversible ischemia in the distal anteroseptal wall. Asymptomatic 2. COPD exacerbation - on 1LNC; managed by PCP 3. CAD with hx of stent - on BACILIO and ASA; not on bblocker due to hx of COPD 4. HTN - stable with current meds MAR reviewed * From Cardiac standpoint, the pt is stable to d/c home. The pt must f/u with Dr Rogers, her slip cover operator, SLOAN for stress test result (partially reversible ischemia in the distal anteroseptal wall)
[2019-10-25] MEDS ORDERED: Amlodipine 5 MG TAB PO SCH (15:30)
--- NOTE | 2019-10-25 18:25 | PDOC.HOSPP ---
- Subjective Encounter Date: 10/25/19 Encounter Time: 18:21 Subjective: 64 y/o female with CAD, RA, Psoriasis and COPD admitted with worsening SOB. Found to be hypoxic and treated with oxygen, bronchodilators and steroid with improvement. Also noted to have troponin elevation. Had Stress test which partially reversible ischemia. Feeling better. Still requiring oxygen. - Objective Vital Signs & Weight: Vital Signs (12 hours) Temp Pulse Resp BP BP BP Pulse Ox 10/25/19 17:00 87 137/64 10/25/19 15:21 98.1 F 87 16 137/64 96 10/25/19 11:43 97.7 F 106 H 18 142/69 H 91 L 10/25/19 08:04 95 10/25/19 07:48 97.7 F 83 16 140/65 95 Weight Admit Weight 227 lb 1.6 oz Weight 227 lb 1.6 oz I&O: 10/24/19 10/25/19 10/26/19 06:59 06:59 06:59 Intake Total 1140 1010 850 Output Total 1999 2100 600 Balance -860 -1090 250 Result Diagrams: 10/25/19 04:48 10/24/19 04:44 Hospitalist ROS - Medication Medications: Active Medications Generic Name Dose Route Start Last Admin Trade Name Freq PRN Reason Stop Dose Admin Hydrocodone Bitart/Acetaminophen 1 tab 10/22/19 09:53 10/24/19 10:56 [place] 5/325 PO 1 tab Q4H PRN Administration Moderate Pain (4-6) Albuterol/Ipratropium 3 ml 10/22/19 09:53 10/23/19 19:49 Duoneb NEB 3 ml Q4H PRN Administration SOB &/or Wheezing Alprazolam 0.25 mg 10/22/19 16:14 10/25/19 13:27 Xanax PO 0.25 mg DAILYPRN PRN Administration Anxiety Aspirin 81 mg 10/23/19 09:00 10/25/19 11:31 Ecotrin PO 81 mg DAILY [facility]IA Administration Doxycycline Hyclate 100 mg 10/22/19 21:00 10/25/19 11:31 Vibramycin PO 100 mg BID TIA Administration Enoxaparin Sodium 40 mg 10/23/19 09:00 10/25/19 11:32 Lovenox SC 40 mg 0900 TIA Administration Famotidine 20 mg 10/22/19 21:00 10/25/19 11:33 Pepcid SLOW IVP Not Given Q12HR TIA Famotidine 20 mg 10/22/19 21:00 10/25/19 11:33 Pepcid PO Not Given BID [facility]IA Guaifenesin 600 mg 10/22/19 21:00 10/25/19 11:31 Mucinex PO 600 mg Q12HR TIA Administration Hydroxychloroquine Sulfate 200 mg 10/22/19 21:00 10/25/19 11:32 Plaquenil PO 200 mg BID [facility]IA Administration Meclizine HCl 25 mg 10/22/19 21:00 10/24/19 21:16 Antivert PO 25 mg QPM [facility]IA Administration Nortriptyline HCl 20 mg 10/23/19 21:00 10/24/19 21:15 Pamelor PO 20 mg HS TIA Administration Nortriptyline HCl 25 mg 10/23/19 21:00 10/24/19 21:15 Pamelor PO 25 mg HS [facility]IA Administration Ondansetron HCl 4 mg 10/22/19 09:53 10/24/19 12:35 Zofran IVP 4 mg Q6H PRN Administration Nausea/Vomiting Culterelle Probiotic 0 each 10/22/19 21:00 10/25/19 10:20 Capsule PO 1 each BID [facility]IA Administration Prednisone 40 mg 10/23/19 09:00 10/25/19 11:32 Prednisone PO 40 mg DAILY [facility]IA Administration - Exam General Appearance: awake alert Eye: anicteric sclera ENT: normocephalic atraumatic, moist mucosa Neck: no JVD Heart: RRR Respiratory: no wheezes, no ronchi, normal chest expansion Gastrointestinal: soft, non-tender, non-distended, normal bowel sounds Extremities: no cyanosis Neurological: cranial nerve grossly intact, no focal deficits Psychiatric: A&O x 3 Hosp A/P (1) Acute respiratory failure with hypoxia Code(s): J96.01 - ACUTE RESPIRATORY FAILURE WITH HYPOXIA Status: Acute (2) COPD with acute exacerbation Code(s): J44.1 - CHRONIC OBSTRUCTIVE PULMONARY DISEASE W (ACUTE) EXACERBATION Status: Acute (3) Elevated troponin Code(s): R79.89 - OTHER SPECIFIED ABNORMAL FINDINGS OF BLOOD CHEMISTRY Status : Acute (4) CAD (coronary artery disease) Code(s): I25.10 - ATHSCL HEART DISEASE OF [place] CORONARY ARTERY W/O ANG PCTRS Status: Acute (5) Rheumatoid arthritis Code(s): M06.9 - RHEUMATOID ARTHRITIS, UNSPECIFIED Status: Acute (6) Psoriasis Code(s): L40.9 - PSORIASIS, UNSPECIFIED Status: Acute (7) Obesity (BMI 35.0-39.9 without comorbidity) Code(s): E66.9 - OBESITY, UNSPECIFIED Status: Acute (8) Abnormal nuclear stress test Status: Acute (9) HTN (hypertension) Code(s): I10 - ESSENTIAL (PRIMARY) HYPERTENSION Status: Acute - Plan Restart lisinopril Trial of low dose coreg given reversiable ischemia Continue oxygen, steroid and bronchodilators Patient will need home oxygen. Case mgt consulted to help with home oxygen therapy Continue other treatments. Cleared for discharge by cardiology but home oxygen arrangement could not be finalized. For discharge tomorrow
[2019-10-25] MEDS: Nortriptyline HCl 25 MG CAP PO SCH (21:41)
[2019-10-25] MEDS: Nortriptyline 10 MG CAP PO SCH (21:42)
[2019-10-25] MEDS: Lisinopril 20 MG TAB PO SCH (21:42)
[2019-10-25] MEDS: Carvedilol 3.125 MG TAB PO SCH ×2 (21:42→21:47)
[2019-10-25] MEDS: Meclizine HCl 25 MG TAB PO SCH (21:42)
[2019-10-26] MEDS: [UNRECOGNIZED DRUG - OTHER] PO SCH ×2 (08:16→19:54)
[2019-10-26] MEDS ORDERED: Amlodipine 5 MG TAB PO SCH ×2 (09:00→13:00)
[2019-10-26] MEDS: Hydroxychloroquine Sulfate 200 MG TAB PO SCH ×2 (09:19→19:59)
[2019-10-26] MEDS: Enoxaparin Sodium 40 MG/0.4 ML SYRINGE SC SCH (09:19)
[2019-10-26] MEDS: Doxycycline 100 MG CAP PO SCH ×2 (09:19→20:00)
[2019-10-26] MEDS: Aspirin 81 mg Enteric Coated Tablet PO SCH (09:20)
[2019-10-26] MEDS: predniSONE 20 MG TAB PO SCH (09:20)
[2019-10-26] MEDS: Lisinopril 20 MG TAB PO SCH ×2 (09:20→19:59)
[2019-10-26] MEDS: guaiFENesin ER 600 MG TAB PO SCH ×2 (09:20→19:59)
[2019-10-26] MEDS: Famotidine/PF 20 mg/2ml Vial SLOW IVP SCH ×2 (09:21→19:54)
[2019-10-26] MEDS: Famotidine 20 MG TAB PO SCH ×2 (09:21→20:00)
[2019-10-26] MEDS: Carvedilol 3.125 MG TAB PO SCH (09:23)
[2019-10-26] MEDS ORDERED: hydrALAZINE 25 MG TAB PO SCH (15:00)
[2019-10-26] MEDS: ALPRAZolam 0.25 MG TAB PO PRN (16:02)
--- NOTE | 2019-10-26 16:30 | PDOC.HOSPP ---
- Subjective Subjective: Seen and examined. Follow up on COPD with acute exacerbation. Patient requiring supplemental oxygen at this time to maintain O2 saturation's. Patient with nuclear medicine stress S with mild reversible ischemia who will follow up with Dr. Rogers in the outpatient setting. Patient also with history of coronary artery disease in history of stents, rheumatoid arthritis, psoriasis. Patient states that overall she feels like she is breathing more comfortably than when she was first admitted. Responding to maximal medical therapy. Case management has been consulted for home oxygen set up. All questions answered in detail, patient happy with plan of care. - Objective Vital Signs & Weight: Vital Signs (12 hours) Temp Pulse Resp BP BP Pulse Ox 10/26/19 15:36 97.5 F L 87 20 158/71 H 97 10/26/19 14:09 87 142/67 H 10/26/19 11:50 97.4 F L 89 20 138/69 97 10/26/19 09:20 174/79 H 10/26/19 08:15 97 10/26/19 07:34 93 L 10/26/19 07:30 97.5 F L 91 20 174/79 H 97 Weight Admit Weight 227 lb 1.6 oz Weight 227 lb 1.6 oz I&O: 10/25/19 10/26/19 10/27/19 06:59 06:59 06:59 Intake Total 1010 1600 Output Total 2100 1450 700 Balance -1090 150 -700 Result Diagrams: 10/25/19 04:48 10/24/19 04:44 Radiology Reviewed by me: Yes Hospitalist ROS - Review of Systems All other systems reviewed; all pertinent +/- noted in HPI/Subj - Medication Medications: Active Medications Generic Name Dose Route Start Last Admin Trade Name Freq PRN Reason Stop Dose Admin Hydrocodone Bitart/Acetaminophen 1 tab 10/22/19 09:53 10/24/19 10:56 [place] 5/325 PO 1 tab Q4H PRN Administration Moderate Pain (4-6) Albuterol/Ipratropium 3 ml 10/22/19 09:53 10/23/19 19:49 Duoneb NEB 3 ml Q4H PRN Administration SOB &/or Wheezing Alprazolam 0.25 mg 10/22/19 16:14 10/26/19 16:02 Xanax PO 0.25 mg DAILYPRN PRN Administration Anxiety Aspirin 81 mg 12/29/19 09:00 10/26/19 09:20 Ecotrin PO 81 mg DAILY [facility] Administration Doxycycline Hyclate 100 mg 10/22/19 21:00 10/26/19 09:19 Vibramycin PO 100 mg BID TIA Administration Enoxaparin Sodium 40 mg 10/23/19 09:00 10/26/19 09:19 Lovenox SC 40 mg 0900 TIA Administration Famotidine 20 mg 10/22/19 21:00 10/26/19 09:21 Pepcid SLOW IVP Not Given Q12HR TIA Famotidine 20 mg 10/22/19 21:00 10/26/19 09:21 Pepcid PO Not Given BID [facility] Guaifenesin 600 mg 10/22/19 21:00 10/26/19 09:20 Mucinex PO 600 mg Q12HR [facility] Administration Hydroxychloroquine Sulfate 200 mg 10/22/19 21:00 10/26/19 09:19 Plaquenil PO 200 mg BID [facility]IA Administration Lisinopril 20 mg 10/25/19 21:00 10/26/19 09:20 Zestril PO 20 mg BID TIA Administration Meclizine HCl 25 mg 10/22/19 21:00 10/25/19 21:42 Antivert PO 25 mg QPM [facility]IA Administration Nortriptyline HCl 20 mg 10/23/19 21:00 10/25/19 21:42 Pamelor PO 20 mg HS TIA Administration Nortriptyline HCl 25 mg 10/23/19 21:00 10/25/19 21:41 Pamelor PO 25 mg HS [facility]IA Administration Ondansetron HCl 4 mg 10/22/19 09:53 10/24/19 12:35 Zofran IVP 4 mg Q6H PRN Administration Nausea/Vomiting Culterelle Probiotic 0 each 10/22/19 21:00 10/26/19 08:16 Capsule PO 1 each BID [facility] Administration Prednisone 40 mg 10/23/19 09:00 10/26/19 09:20 Prednisone PO 40 mg DAILY [facility]IA Administration - Exam General Appearance: NAD, awake alert Eye: PERRL ENT: normocephalic atraumatic, moist mucosa Neck: supple, symmetric, no lymphadenopathy Heart: no murmur, no gallops, no rubs Respiratory: no rales, normal chest expansion, no tachypnea, rhonchi, wheezes Gastrointestinal: soft, non-tender, non-distended, no guarding, no rigidity Extremities: 1+ LE edema Skin: no lesions, no rashes Neurological: cranial nerve grossly intact, no focal deficits Musculoskeletal: generalized weakness Psychiatric: normal affect, normal behavior, A&O x 3 Hosp A/P (1) Abnormal nuclear stress test Status: Acute (2) Acute respiratory failure with hypoxia Code(s): J96.01 - ACUTE RESPIRATORY FAILURE WITH HYPOXIA Status: Acute (3) CAD (coronary artery disease) Code(s): I25.10 - ATHSCL HEART DISEASE OF [place] CORONARY ARTERY W/O ANG PCTRS Status: Acute (4) COPD with acute exacerbation Code(s): J44.1 - CHRONIC OBSTRUCTIVE PULMONARY DISEASE W (ACUTE) EXACERBATION Status: Acute (5) Elevated troponin Code(s): R79.89 - OTHER SPECIFIED ABNORMAL FINDINGS OF BLOOD CHEMISTRY Status : Acute (6) HTN (hypertension) Code(s): I10 - ESSENTIAL (PRIMARY) HYPERTENSION Status: Acute (7) Obesity (BMI 35.0-39.9 without comorbidity) Code(s): E66.9 - OBESITY, UNSPECIFIED Status: Acute (8) Psoriasis Code(s): L40.9 - PSORIASIS, UNSPECIFIED Status: Acute (9) Rheumatoid arthritis Code(s): M06.9 - RHEUMATOID ARTHRITIS, UNSPECIFIED Status: Acute - Plan Plan: medical unit with telemetry cardiology consultation, recommendations appreciated abnormal nuclear medicine stress test will require follow up with cardiology in the outpatient setting, patient states that she has an appointment with Dr. 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
[2019-10-26] MEDS: Meclizine HCl 25 MG TAB PO SCH (19:59)
[2019-10-26] MEDS: Nortriptyline HCl 25 MG CAP PO SCH (20:00)
[2019-10-26] MEDS: Nortriptyline 10 MG CAP PO SCH (20:00)
[2019-10-26] MEDS: hydrALAZINE 10 MG TAB PO SCH (20:41)
[2019-10-27] MEDS ORDERED: Benzonatate 100 MG CAP PO PRN (07:17)
--- NOTE | 2019-10-27 08:07 | PDOC.CPN ---
- Subjective Date: 10/27/19 Time: 08:05 Interval history: The pt seen and examined. No overnight events. No cardiac complaints. - Objective Allergies/Adverse Reactions: Allergies Allergy/AdvReac Type Severity Reaction Status Date / Time propoxyphene HCl Allergy Severe SHORTNESS Verified 10/22/19 06:24 [From Darvon] OF BREATH amoxicillin [Amoxicillin] Allergy Intermediate Verified 10/22/19 06:24 bupropion HCl [From Zyban] Allergy Intermediate Verified 10/22/19 06:24 fluoxetine Allergy Intermediate Verified 10/22/19 06:24 levofloxacin [From Levaquin] Allergy Intermediate "C-DIFF" Verified 10/22/19 06: 24 sulfamethoxazole Allergy Intermediate Verified 10/22/19 06:24 [From Bactrim] bupropion Allergy Verified 10/22/19 06:24 nitrofurantoin Allergy Verified 10/22/19 06:24 [From Furadantin] nitrofurantoin Allergy Verified 10/22/19 06:24 macrocrystalline [From Macrobid] Sulfa (Sulfonamide Allergy Verified 10/22/19 06:24 Antibiotics) trimethoprim [From Bactrim] Allergy Verified 10/22/19 06:24 Visit Medications: Current Medications Acetaminophen (Tylenol) 650 mg PO Q4H PRN PRN Reason: Headache/Fever/Mild Pain (1-3) Hydrocodone Bitart/Acetaminophen ([place] 5/325) 1 tab PO Q4H PRN PRN Reason: Moderate Pain (4-6) Last Admin: 10/24/19 10:56 Dose: 1 tab Albuterol/Ipratropium (Duoneb) 3 ml NEB Q4H PRN PRN Reason: SOB &/or Wheezing Last Admin: 10/23/19 19:49 Dose: 3 ml Albuterol/Ipratropium (Duoneb) 3 ml NEB [id number] PRN PRN Reason: SOB &/or Wheezing Alprazolam (Xanax) 0.25 mg PO DAILYPRN PRN PRN Reason: Anxiety Last Admin: 10/26/19 16:02 Dose: 0.25 mg Amlodipine Besylate (Norvasc) 2.5 mg PO DAILY [facility] Aspirin (Ecotrin) 81 mg PO DAILY [facility] Last Admin: 10/26/19 09:20 Dose: 81 mg Benzonatate (Tessalon) 100 mg PO Q4H PRN PRN Reason: Cough Doxycycline Hyclate (Vibramycin) 100 mg PO BID [facility] Last Admin: 10/26/19 20:00 Dose: 100 mg Enoxaparin Sodium (Lovenox) 40 mg SC 0900 [facility] Last Admin: 10/26/19 09:19 Dose: 40 mg Famotidine (Pepcid) 20 mg SLOW IVP Q12HR [facility] Last Admin: 10/26/19 19:54 Dose: Not Given Famotidine (Pepcid) 20 mg PO BID [facility] Last Admin: 10/26/19 20:00 Dose: Not Given Gabapentin (Neurontin) 100 mg PO DAILYPRN PRN PRN Reason: Pain Hydralazine HCl (Apresoline) 25 mg PO TID [facility] Last Admin: 10/26/19 20:41 Dose: 25 mg Hydroxychloroquine Sulfate (Plaquenil) 200 mg PO BID [facility] Last Admin: 10/26/19 19:59 Dose: 200 mg Lisinopril (Zestril) 20 mg PO BID [facility] Last Admin: 10/26/19 19:59 Dose: 20 mg Meclizine HCl (Antivert) 25 mg PO QPM [facility] Last Admin: 10/26/19 19:59 Dose: 25 mg Nortriptyline HCl (Pamelor) 20 mg PO HS [facility] Last Admin: 10/26/19 20:00 Dose: 20 mg Nortriptyline HCl (Pamelor) 25 mg PO HS [facility] Last Admin: 10/26/19 20:00 Dose: 25 mg Ondansetron HCl (Zofran Odt) 4 mg PO Q6H PRN PRN Reason: Nausea/Vomiting Ondansetron HCl (Zofran) 4 mg IVP Q6H PRN PRN Reason: Nausea/Vomiting Last Admin: 10/24/19 12:35 Dose: 4 mg Culterelle Probiotic (Capsule) 0 each PO BID [facility] Last Admin: 10/26/19 19:54 Dose: Not Given Prednisone (Prednisone) 40 mg PO DAILY [facility] Last Admin: 10/26/19 09:20 Dose: 40 mg Senna/Docusate Sodium (Senokot S) 2 tab PO BID PRN PRN Reason: Constipation Vital Signs & Weight: Vital Signs Temp Pulse Resp BP Pulse Ox 10/27/19 04:00 97.6 F 78 18 163/74 H 97 10/26/19 23:57 97.6 F 82 18 135/65 98 Admit Weight 227 lb 1.6 oz Weight 227 lb 1.6 oz - Physical Exam General: alert & oriented x3 HEENT: mucus membranes moist Neck: supple neck Cardiac: regular rate and rhythm, S1/S2 Lungs: decreased breath sounds Neuro: cranial nerve 2-12 intact Abdomen: unremarkable - Labs Result Diagrams: 10/25/19 04:48 10/24/19 04:44 Troponin/CKMB CK-MB (CK-2) 0.6 ng/mL (0-6.6) 10/21/19 22:42 Troponin I 0.078 ng/mL (< 0.028) H 10/24/19 04:44 - Telemetry Sinus rhythms and dysrhythmias: sinus rhythm - Assessment/Plan Assessment/Plan: 1. Elevated trop - stress test showed partially reversible ischemia in the distal anteroseptal wall. Asymptomatic 2. COPD exacerbation - on 1LNC; The pt will d/c home with Home O2; managed by PCP 3. CAD with hx of stent - on BACILIO and ASA; not on bblocker due to hx of COPD 4. HTN - stable with current meds MAR reviewed * From Cardiac standpoint, the pt is stable to d/c home. 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
[2019-10-27] MEDS: Doxycycline 100 MG CAP PO SCH (08:45)
[2019-10-27] MEDS: Lisinopril 20 MG TAB PO SCH (08:45)
[2019-10-27] MEDS: predniSONE 20 MG TAB PO SCH (08:45)
[2019-10-27] MEDS: hydrALAZINE 10 MG TAB PO SCH ×2 (08:46→15:53)
[2019-10-27] MEDS: Hydroxychloroquine Sulfate 200 MG TAB PO SCH (08:47)
[2019-10-27] MEDS: Aspirin 81 mg Enteric Coated Tablet PO SCH (08:47)
[2019-10-27] MEDS: Famotidine/PF 20 mg/2ml Vial SLOW IVP SCH (08:48)
[2019-10-27] MEDS: Famotidine 20 MG TAB PO SCH (08:48)
[2019-10-27] MEDS: [UNRECOGNIZED DRUG - OTHER] PO SCH (08:49)
[2019-10-27] MEDS: Enoxaparin Sodium 40 MG/0.4 ML SYRINGE SC SCH (08:49)
[2019-10-27] MEDS ORDERED: Amlodipine 5 MG TAB PO SCH (09:00)
[2019-10-27] MEDS ORDERED: Fluticasone Propionate HFA 110 MCG AER INH SCH (09:00)
[2019-10-27] MEDS ORDERED: Mometasone 100 MCG HFA INHALER INH SCH ×2 (09:45→18:30)
--- NOTE | 2019-10-27 15:18 | PDOC.HOSPP ---
- Subjective Subjective: Seen and examined. Continues to clinically improved. Still requiring supplemental oxygen to maintain O2 saturation. Antibiotics and steroids are being continued. Discuss with patient about inhaled steroids, patient states that she has been on these in the past and they have helped her. All questions answered in detail. Patient happy with plan of care. Pending insurance approval for oxygen. - Objective Vital Signs & Weight: Vital Signs (12 hours) Temp Pulse Resp BP BP Pulse Ox 10/27/19 11:19 98.1 F 87 16 134/62 95 10/27/19 08:47 94 140/67 10/27/19 08:46 94 140/67 10/27/19 08:45 140/67 10/27/19 08:42 97 10/27/19 08:16 97 10/27/19 08:00 97.4 F L 94 12 140/67 97 10/27/19 07:29 97.4 F L 94 12 140/67 97 10/27/19 04:00 97.6 F 78 18 163/74 H 97 Weight Admit Weight 227 lb 1.6 oz Weight 227 lb 1.6 oz I&O: 10/26/19 10/27/19 10/28/19 06:59 06:59 06:59 Intake Total 1600 450 Output Total 1450 700 Balance 150 -250 Result Diagrams: 10/25/19 04:48 10/24/19 04:44 Radiology Reviewed by me: Yes Hospitalist ROS - Review of Systems All other systems reviewed; all pertinent +/- noted in HPI/Subj - Medication Medications: Active Medications Generic Name Dose Route Start Last Admin Trade Name Freq PRN Reason Stop Dose Admin Hydrocodone Bitart/Acetaminophen 1 tab 10/22/19 09:53 10/24/19 10:56 [place] 5/325 PO 1 tab Q4H PRN Administration Moderate Pain (4-6) Albuterol/Ipratropium 3 ml 10/22/19 09:53 10/23/19 19:49 Duoneb NEB 3 ml Q4H PRN Administration SOB &/or Wheezing Alprazolam 0.25 mg 10/22/19 16:14 10/26/19 16:02 Xanax PO 0.25 mg DAILYPRN PRN Administration Anxiety Amlodipine Besylate 2.5 mg 10/27/19 09:00 10/27/19 08:47 Norvasc PO 2.5 mg DAILY [facility] Administration Aspirin 81 mg 10/23/19 09:00 10/27/19 08:47 Ecotrin PO 81 mg DAILY [facility] Administration Doxycycline Hyclate 100 mg 10/22/19 21:00 10/27/19 08:45 Vibramycin PO 100 mg BID [facility] Administration Enoxaparin Sodium 40 mg 10/23/19 09:00 10/27/19 08:49 Lovenox SC 40 mg 0900 [facility] Administration Famotidine 20 mg 10/22/19 21:00 10/27/19 08:48 Pepcid SLOW IVP Not Given Q12HR [facility] Famotidine 20 mg 10/22/19 21:00 10/27/19 08:48 Pepcid PO Not Given BID [facility] Hydralazine HCl 25 mg 10/26/19 21:00 10/27/19 08:46 Apresoline PO 25 mg TID [facility] Administration Hydroxychloroquine Sulfate 200 mg 10/22/19 21:00 10/27/19 08:47 Plaquenil PO 200 mg BID [facility] Administration Lisinopril 20 mg 10/25/19 21:00 10/27/19 08:45 Zestril PO 20 mg BID [facility] Administration Meclizine HCl 25 mg 10/22/19 21:00 10/26/19 19:59 Antivert PO 25 mg QPM [facility] Administration Nortriptyline HCl 20 mg 10/23/19 21:00 10/26/19 20:00 Pamelor PO 20 mg HS [facility] Administration Nortriptyline HCl 25 mg 10/23/19 21:00 10/26/19 20:00 Pamelor PO 25 mg HS [facility] Administration Ondansetron HCl 4 mg 10/22/19 09:53 10/24/19 12:35 Zofran IVP 4 mg Q6H PRN Administration Nausea/Vomiting Culterelle Probiotic 0 each 10/22/19 21:00 10/27/19 08:49 Capsule PO Not Given BID [facility] Prednisone 40 mg 10/23/19 09:00 10/27/19 08:45 Prednisone PO 40 mg DAILY [facility] Administration - Exam General Appearance: NAD, awake alert Eye: anicteric sclera ENT: normocephalic atraumatic, moist mucosa Neck: supple, symmetric, no lymphadenopathy Heart: no murmur, no gallops, no rubs Respiratory: no rales, normal chest expansion, no tachypnea, rhonchi, wheezes ( Improving) Gastrointestinal: soft, non-tender, non-distended, no guarding, no rigidity Extremities: no clubbing, no edema Skin: no lesions, no rashes Neurological: cranial nerve grossly intact, no focal deficits Musculoskeletal: generalized weakness Psychiatric: normal affect, A&O x 3 Hosp A/P (1) Abnormal nuclear stress test Status: Acute (2) Acute respiratory failure with hypoxia Code(s): J96.01 - ACUTE RESPIRATORY FAILURE WITH HYPOXIA Status: Acute (3) CAD (coronary artery disease) Code(s): I25.10 - ATHSCL HEART DISEASE OF [place] CORONARY ARTERY W/O ANG PCTRS Status: Acute (4) COPD with acute exacerbation Code(s): J44.1 - CHRONIC OBSTRUCTIVE PULMONARY DISEASE W (ACUTE) EXACERBATION Status: Acute (5) Elevated troponin Code(s): R79.89 - OTHER SPECIFIED ABNORMAL FINDINGS OF BLOOD CHEMISTRY Status : Acute (6) HTN (hypertension) Code(s): I10 - ESSENTIAL (PRIMARY) HYPERTENSION Status: Acute (7) Obesity (BMI 35.0-39.9 without comorbidity) Code(s): E66.9 - OBESITY, UNSPECIFIED Status: Acute (8) Psoriasis Code(s): L40.9 - PSORIASIS, UNSPECIFIED Status: Acute (9) Rheumatoid arthritis Code(s): M06.9 - RHEUMATOID ARTHRITIS, UNSPECIFIED Status: Acute - Plan Plan: medical unit with telemetry cardiology consultation, recommendations appreciated abnormal nuclear medicine stress test will require follow up with cardiology in the outpatient setting, patient states that she has an appointment with Dr. 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
[2019-10-27 16:11] VITALS: TEMP 98.2
[2019-10-27] MEDS ORDERED: Lisinopril 20 MG TAB PO SCH (17:30)
[2019-10-27] MEDS ORDERED: Hydroxychloroquine Sulfate 200 MG TAB PO SCH (17:30)
[2019-10-27] MEDS ORDERED: Meclizine HCl 25 MG TAB PO SCH (17:30)
[2019-10-27] MEDS ORDERED: Nortriptyline 10 MG CAP PO SCH (17:30)
[2019-10-27] MEDS ORDERED: Doxycycline 100 MG CAP PO SCH (17:30)
[2019-10-27] MEDS ORDERED: Nortriptyline HCl 25 MG CAP PO SCH (17:30)
[2019-10-27 17:45] VITALS: BP 140/67
--- NOTE | 2019-10-27 17:54 | DIS ---
DATE OF ADMISSION: 10/22/2019 DATE OF DISCHARGE: 10/27/2019 REASON FOR HOSPITALIZATION: Shortness of breath. SIGNIFICANT FINDINGS: The patient was found to have COPD with acute exacerbation requiring supplemental oxygen on discharge. PROCEDURES PERFORMED AND TREATMENTS RENDERED: The patient was admitted to medical unit with telemetry, please see full history and physical, consultation notes, and progress notes from internal medicine physician and all specialists for details. The patient was diagnosed with COPD with acute exacerbation. The patient was placed on antibiotics, steroids, and breathing treatments with good improvement of symptoms. Unfortunately, the patient was unable to be weaned from oxygen therapy and she required being set up with home oxygen prior to discharge. The patient was seen and evaluated by Cardiology, Dr. Alston on 10/24/2019-please see full consultation and progress notes for details. The patient with nuclear medicine stress test, which was determined to have a partially reversible defect, the patient does have history of coronary artery disease and she normally follows up with Dr. Rogers, her outpatient catheterization laboratory technician. The patient elected that she would like to follow up with Dr. Rogers in the outpatient setting for this abnormal stress test. The patient has had stents placed in the past by Dr. Rogers and he is monitoring her disease closely. The patient was set up with oxygen therapy by Case Management on 10/27/2019 and the patient was recommended safe for discharge shortly afterwards. Prescriptions were sent to the patient's pharmacy of her choosing and recommended to complete a full course of oral antibiotics and a steroid taper for resolution of COPD exacerbation. The patient will see her primary care physician in the next 5 to 7 days and medications will be adjusted as needed. The patient will see her catheterization laboratory technician in the next 1 to 2 weeks for followup on abnormal stress test. The patient recommended to take all other medications as directed, to be re-evaluated by primary care physician and Cardiology in the outpatient setting. The patient recommended to return to acute care hospital immediately if signs or symptoms return, worsen, or any other new symptoms occur. CONDITION ON DISCHARGE: Stable. SPECIFIC INSTRUCTIONS FOR THE PATIENT/FAMILY: 1. The patient is recommended to complete a full course of oral antibiotics and oral steroids as directed. 2. The patient is recommended to use supplemental oxygen to maintain O2 saturation greater than 88%. 3. The patient recommended to start inhaled corticosteroid therapy for maintenance of COPD and use rescue inhaler as needed for shortness of breath or wheezing. 4. The patient recommended to follow up with primary care physician in the next 5 to 7 days to go over all changes to medical regimen. 5. The patient is recommended to follow up with Cardiology, Dr. Rogers in the next 1 to 2 weeks to go over abnormal stress test. 6. The patient is recommended to return to acute care hospital immediately if signs or symptoms return, worsen, or any other new symptoms occur. DISCHARGE MEDICATIONS: Please see full discharge medication list for details. Greater than 38 minutes spent coordinating care and discharge process for this patient. Job ID: [id number]
== END 2019-10-27 19:10 | disposition home or self-care (01) | DRG 189 ==
LOC: ERS 22:06 → ERHOLD 10-22 02:47 → 2SE 10-22 05:47
PROVIDERS: ADMIT Family Medicine; ATTEND Family Medicine
DX: J96.01 Acute respiratory failure with hypoxia (principal); J44.1 Chronic obstructive pulmonary disease with (acute) exacerbation; M06.9 Rheumatoid arthritis, unspecified; I25.10 Atherosclerotic heart disease of native coronary artery without angina pectoris; I10 Essential (primary) hypertension; F41.9 Anxiety disorder, unspecified; L40.9 Psoriasis, unspecified; E66.9 Obesity, unspecified; G89.29 Other chronic pain; R79.89 Other specified abnormal findings of blood chemistry; I25.89 Other forms of chronic ischemic heart disease; Z95.5 Presence of coronary angioplasty implant and graft; Z90.49 Acquired absence of other specified parts of digestive tract; Z98.51 Tubal ligation status; Z87.891 Personal history of nicotine dependence; Z88.1 Allergy status to other antibiotic agents; Z88.2 Allergy status to sulfonamides; Z88.8 Allergy status to other drugs, medicaments and biological substances; Z79.82 Long term (current) use of aspirin; Z68.37 Body mass index [BMI] 37.0-37.9, adult
CPT/HCPCS: 36415; 71045; 71275; 78452; 80048; 80053; 82553; 83690; 83735; 83880; 84484; 85025; 85027; 85379; 87324; 87449; 87633; 87804; 93005; 93017; 93306; 94640; A9500; J1650; J2405; J2785; J2930; J3475; J3490; J7512; J7620; J8597; Q0162; S0028

== ENCOUNTER 2019-12-20 09:23 | Outpatient (CLI) | payer MEDICARE, OTHER ==
[2019-12-20 11:21] LABS: Hemoglobin 13.2 g/dL (12.0-16.0); Mean Corpuscular HGB CONC 33.6 g/dL (32.0-36.0); Mean Corpuscular Hemoglobin 29.5 pg (27.0-31.0); Mean Corpuscular Volume 87.9 fL (78.0-98.0); Mean Platelet Volume 7.9 fL (7.4-10.4); Platelet Count 246 thou/uL (130-400); RBC Distribution Width 12.5 % (11.5-14.5); Red Blood Cell (RBC) Count 4.46 mill/uL (4.20-5.40); White Blood Cell (WBC) Count 7.2 thou/uL (4.8-10.8)
[2019-12-20 11:23] LABS: INR-International Normal Ratio 0.9; PTT 27.5 SEC (22.9-36.1); Prothrombin Time 12.4 SEC (12.0-14.7)
[2019-12-20 11:36] LABS: Anion Gap 11 mmol/L (10-20); BUN (Urea Nitrogen) 4 mg/dL (9.8-20.1); Calc. Creatinine Clearance 0 mL/min (70-130); Calcium 9.3 mg/dL (7.8-10.44); Carbon Dioxide 28 mmol/L (23-31); Chloride 104 mmol/L (98-107); Estimated GFR-MDRD 82; Glucose 92 mg/dL (80-115); Potassium 4.1 mmol/L (3.5-5.1); Sodium 139 mmol/L (136-145)
--- NOTE | 2019-12-20 11:45 | RAD ---
EXAM: CHEST TWO VIEWS 12/20/2019 11:42 AM HISTORY: Preop evaluation COMPARISON: October 21, 2019 FINDINGS: Lungs: No acute airspace consolidation. Heart: Stable mild cardiomegaly. Stable coronary artery endograft stents overlying the left heart sh adow. Pulmonary Vessels: Normal. Costophrenic Angles: Clear. Pneumothorax: None. Osseous Structures: Intact. Additional Findings: Surgical clips of the upper abdomen are stable. IMPRESSION: No significant acute intrathoracic disease.
--- NOTE | 2019-12-20 17:05 | EKG ---
Test Reason : Blood Pressure : / mmHG Vent. Rate : 079 BPM Atrial Rate : 079 BPM P-R Int : 140 ms QRS Dur : 086 ms QT Int : 388 ms P-R-T Axes : 065 050 050 degrees QTc Int : 444 ms Normal sinus rhythm Nonspecific ST and T wave abnormality Abnormal ECG When compared with ECG of 21-OCT-2019 22:34, T wave inversion no longer evident in Inferior leads Confirmed by DR. Martin CARDOSO ([id number]) on 12/20/2019 5:04:55 PM Referred By: KIKO Confirmed By:DR. Martin CARDOSO
== END 2019-12-20 09:24 | disposition home or self-care (01) ==
LOC: LABBT 09:23
PROVIDERS: ATTEND Thoracic Surgery (Cardiothoracic Vascular Surgery)
DX: Z01.818 Encounter for other preprocedural examination (principal); I25.10 Atherosclerotic heart disease of native coronary artery without angina pectoris
CPT/HCPCS: 71046; 80048; 85027; 85610; 85730; 93005; 93010

== ENCOUNTER 2019-12-22 09:12 | Inpatient (IN) | payer MEDICARE, OTHER ==
[2019-12-30] MEDS ORDERED: Dexmedetomidine 200 MCG/2 ML VIAL ONE (06:59)
[2019-12-30] MEDS ORDERED: Midazolam HCl 2 mg/2 ml Vial ONE (06:59)
[2019-12-30] MEDS ORDERED: Fentanyl 250 MCG/5 ML VIAL ONE (06:59)
[2019-12-30] MEDS ORDERED: Phenylephrine 10 MG/ML VIAL ONE (06:59)
[2019-12-30] MEDS ORDERED: Clindamycin/D5W 900 mg/50 ml Premix Bag ONE (07:26)
[2019-12-30] MEDS ORDERED: Vancomycin 1.5 GRAM/300 ML BAG 1.5 GM/300 ML BAG ONE (07:26)
[2019-12-30] MEDS ORDERED: EPINEPHrine 1 MG/ML AMP ONE (08:41)
[2019-12-30] MEDS ORDERED: Bupivacaine PF 0.5% 30 ML VIAL ONE (08:41)
[2019-12-30] MEDS ORDERED: Papaverine 60 MG/2 ML VIAL ONE (09:16)
[2019-12-30] MEDS ORDERED: Potassium Chloride 60 MEQ/30 ML VIAL ONE (09:16)
[2019-12-30] MEDS ORDERED: Magnesium Sulfate 1 GM/2 ML VIAL ONE (09:16)
[2019-12-30] MEDS ORDERED: Glycopyrrolate 0.2 MG/ML 5 ML SYRINGE ONE (09:16)
[2019-12-30] MEDS ORDERED: Heparin 5,000 UNITS/ML VIAL ONE (09:16)
[2019-12-30] MEDS ORDERED: Rocuronium Bromide 10 MG/ML (10ML VIAL) ONE (09:16)
[2019-12-30] MEDS ORDERED: Ondansetron PF 4 MG/2 ML Vial ONE (09:16)
[2019-12-30] MEDS ORDERED: Sodium Bicarb 50 MEQ/50 ML Abboject 8.4% SYRINGE ONE (09:16)
[2019-12-30] MEDS ORDERED: Dexamethasone 20 MG/5 ML VIAL ONE (09:16)
[2019-12-30] MEDS ORDERED: Thrombin 5000 UNITS/5 ML VIAL ONE (09:16)
[2019-12-30] MEDS ORDERED: Cardioplegic Soln 1,000 ML BAG ONE (09:16)
[2019-12-30] MEDS ORDERED: Lidocaine 1% PF 5 ML VIAL ONE (09:16)
[2019-12-30] MEDS ORDERED: Ketorolac Tromethamine 30 MG/ML VIAL ONE (09:16)
[2019-12-30] MEDS ORDERED: PROPOFOL 200 MG/20 ML VIAL ONE (09:16)
[2019-12-30] MEDS ORDERED: Protamine Sulfate 250 MG/25 ML VIAL ONE (09:16)
[2019-12-30] MEDS ORDERED: Lidocaine 2% PF 5 ML VIAL ONE (09:16)
[2019-12-30] MEDS ORDERED: Aminocaproic Acid 5 GM/20 ML VIAL ONE (09:16)
[2019-12-30] MEDS ORDERED: Heparin 30,000 units/30 ml VIAL ONE (09:16)
[2019-12-30] MEDS ORDERED: Esmolol 100 MG/10 ML VIAL ONE (09:16)
[2019-12-30] MEDS ORDERED: Nitroglycerin 50 MG/250 ML BOT ONE (09:16)
[2019-12-30] MEDS ORDERED: Calcium Chloride 1 GM/10 ML Abboject SYRINGE ONE (09:16)
[2019-12-30] MEDS ORDERED: Sodium Chloride 0.9% 10 ML ONE (10:10)
[2019-12-30] MEDS ORDERED: Heparin 10,000 UNITS/1 ML VIAL 30,000 UNITS in Sodium Chloride 0.9% 1,000 ML FS SCH (10:15)
[2019-12-30] MEDS ORDERED: Albumin 5% 500 ML ONE (10:24)
[2019-12-30] MEDS ORDERED: Fluconazole In NaCl,Iso-Osm 400 MG in Premix Bag 1 BAG IVPB SCH (11:00)
[2019-12-30] MEDS ORDERED: Acetaminophen 325 MG TAB PO PRN (14:03)
[2019-12-30] MEDS ORDERED: Nitroglycerin 50 MG/250 ML BOT 250 ML IVPB PRN (14:03)
[2019-12-30] MEDS ORDERED: niCARdipine 25 MG in Sodium Chloride 0.9% 250 ML 250 ML IVPB PRN (14:03)
[2019-12-30] MEDS ORDERED: Magnesium 2 GM/50 ML 2 GM in Premix Bag 1 BAG IVPB SCH (14:03)
[2019-12-30] MEDS ORDERED: Bisacodyl 5 MG TAB PO PRN (14:03)
[2019-12-30] MEDS ORDERED: traMADol HCl 50 MG TAB PO PRN (14:03)
[2019-12-30] MEDS ORDERED: D5 1/2 NS w/20 mEq KCL 1,000 ML IV SCH (14:03)
[2019-12-30] MEDS ORDERED: hydrALAZINE 20 MG/ML VIAL SLOW IVP PRN (14:03)
[2019-12-30] MEDS ORDERED: Morphine 2 MG/ML SYRINGE SLOW IVP PRN (14:03)
[2019-12-30] MEDS ORDERED: Fentanyl 100 MCG/2 ML VIAL SLOW IVP PRN ×2 (14:03)
[2019-12-30] MEDS ORDERED: Guaifenesin DM 100-10/5 ML UDCUP PO PRN (14:03)
[2019-12-30] MEDS ORDERED: Potassium Chloride 20 MEQ/100 ML PREMIX BAG IVPB PRN (14:03)
[2019-12-30] MEDS ORDERED: Mag-Al 1200 mg/1200 mg/30 ML UDCUP PO PRN (14:03)
[2019-12-30] MEDS ORDERED: Bisacodyl 10 MG SUPP PR PRN (14:03)
[2019-12-30] MEDS ORDERED: Hetastarch 6% 500 ML 500 ML IVPB PRN (14:03)
[2019-12-30] MEDS ORDERED: Norepinephrine 8 MG/0.9% NS 250 ML IVPB PRN (14:03)
[2019-12-30] MEDS ORDERED: Dextrose 5% in Water 1,000 ML IV PRN (14:20)
[2019-12-30] MEDS ORDERED: Dextrose 50% Abboject 50 ML SYRINGE SLOW IVP PRN (14:20)
[2019-12-30] MEDS ORDERED: HUMULIN R 100 UNITS in Sodium Chloride 0.9% 100 ML IVPB SCH (14:20)
[2019-12-30 14:22] LABS: Actual Bicarbonate (HCO3a) 21.4 mEq/L (22-28); Base Excess (BEa) -4.6 mEq/L (-2.0 to +3.0); CO2 Tension 42.7 mmHg (35.0-45.0); Calcium, Ionized 1.09 mmol/L (1.12-1.30); Carboxyhemoglobin (COHb) 0.6 gm% (0.0-3.0); Hemoglobin (Hb) 11.2 g/dL (12.0-16.0); Potassium - ABG Lab 3.83 mmol/L (3.70-5.30); pH, Arterial 7.32 (7.35-7.45)
[2019-12-30 14:24] LABS: #Eosinphils 0.2 thou/uL (0.0-0.7); #Lymphocytes 1.2 thou/uL (1.20-3.40); #Monocytes 0.8 thou/uL (0.11-0.59); #Neutrophils 14.6 thou/uL (1.40-6.50); %Basophils 0.1 % (0.0-1.0); %Eosinophils 1.1 % (0.0-10.0); %Lymphocytes 7.3 % (21.0-51.0); %Monocytes 4.5 % (0.0-10.0); Hemoglobin 11.5 g/dL (12.0-16.0); Mean Corpuscular HGB CONC 33.4 g/dL (32.0-36.0); Mean Corpuscular Hemoglobin 29.4 pg (27.0-31.0); Mean Corpuscular Volume 88.1 fL (78.0-98.0); Mean Platelet Volume 7.5 fL (7.4-10.4); Platelet Count 183 thou/uL (130-400); RBC Distribution Width 12.5 % (11.5-14.5); Red Blood Cell (RBC) Count 3.91 mill/uL (4.20-5.40); White Blood Cell (WBC) Count 16.8 thou/uL (4.8-10.8)
[2019-12-30 14:25] LABS: ALV-art Gradient 230.125 (0-20); Puncture Site ALINE
[2019-12-30 14:29] LABS: INR-International Normal Ratio 1.2; Prothrombin Time 14.7 SEC (12.0-14.7)
--- NOTE | 2019-12-30 14:33 | RAD ---
PORTABLE CHEST 1 VIEW: DATE: 12/30/2019. TIME: 2:18 PM. HISTORY: Postop open heart surgery. FINDINGS/IMPRESSION: Comparison is made with the exam of 12/20/2019. Interval changes of median sternotomy are seen. There has been interval placement of an endotracheal tube with tip at the level of the clavicular heads. There has been placement of a right subclavian central line with tip in the projection of the right atrium. A left-sided chest tube has been placed . There is atelectatic change at the left lung base with accompanying left effusion. No pneumothora deandre are seen. POS: [facility]
[2019-12-30 14:43] LABS: Anion Gap 11 mmol/L (10-20); BUN (Urea Nitrogen) 5 mg/dL (9.8-20.1); Calc. Creatinine Clearance 135 mL/min (70-130); Carbon Dioxide 25 mmol/L (23-31); Chloride 109 mmol/L (98-107); Estimated GFR-MDRD Greater than 90; Glucose 154 mg/dL (80-115); Sodium 141 mmol/L (136-145)
[2019-12-30 14:47] VITALS: BMI 14.1
[2019-12-30] MEDS: Insulin Regular 300 UNITS/3 ML VIAL SC PRN ×2 (14:53→20:47)
--- NOTE | 2019-12-30 15:02 | OP ---
DATE OF PROCEDURE: 12/30/2019 PREOPERATIVE DIAGNOSIS: Coronary artery disease/hypertension. POSTOPERATIVE DIAGNOSIS: Coronary artery disease/hypertension. PROCEDURES PERFORMED: Coronary artery bypass grafting x3, 1. Left internal mammary artery to 1.5 mm distal left anterior descending - good conduit and target. 2. Reverse saphenous vein to 2.0 mm ramus, good conduit and target. 3. Bursitis vein to 2.5 mm obtuse marginal, good conduit and target. SETTER OFF: Alex Ralph MD ANESTHESIA: General endotracheal, Dr. Navin Spicer. PUMP TIME: 36 minutes. CROSS-CLAMP TIME: 30 minutes. LOW-CORE TEMPERATURE: 34 degrees Celsius. MAGNETIC PROSPECTING OPERATOR: Michael Wilkins. DRAINS: 24-[place] and 19-[place] Jaylen drains. SPECIMENS: None. TRANSFUSIONS: None. DESCRIPTION OF PROCEDURE: After consent was obtained, the patient was brought to the operating room and placed in supine position on the operating room table. Appropriate central line and monitors were placed and general endotracheal anesthesia was induced. Chest, abdomen, and legs were prepped and draped in usual sterile fashion. Greater saphenous vein was harvested from the left thigh utilizing an endoscopic technique. Wounds were irrigated and closed in layers. Median sternotomy was performed. Left internal mammary artery was harvested as a pedicle graft. The patient was systemically heparinized. Distal pedicle was divided and infused with papaverine. Thymic fat and pericardium were divided with electrocautery. Pericardial stay sutures were placed. Aortic and atrial cannulation was performed. After adequate heparinization, retrograde prime was performed. The patient was placed on cardiopulmonary bypass. Aortic cross-clamp was applied and antegrade sanguineous cardioplegic arrest was obtained. 1000 mL of [place] cold blood cardioplegia was given. Topical cold solution was used. Reverse saphenous vein was anastomosed to the OM in an end-to-side fashion with running 7-0 Prolene suture. Anastomosis was tested and was hemostatic. Reverse saphenous vein was anastomosed to the ramus in an end-to-side fashion with running 7-0 Prolene suture. Anastomosis was tested and was hemostatic. Mammary artery was brought through a window in the pericardium and anastomosed to the distal LAD in an end-to-side fashion with running 7-0 Prolene suture. On release of mammary clamps, good hooding of the anastomosis and good distal flow. Pedicle was secured with interrupted 6-0 Prolene suture. Cross-clamp was removed and partial-occluding clamp placed. Saphenous vein to the OM was anastomosed to the aortic root. Saphenous vein to the ramus was anastomosed to the sidewall of the OM graft. Partial-occluding clamp was removed and graft was deaired. Anastomoses were inspected for hemostasis, which was good. The patient was warmed and weaned from cardiopulmonary bypass. After resumption of sinus rhythm, good hemodynamics, temperature greater than 36.5, bypass was discontinued. Transfusion was given. 24-[place] and 19-[place] drains were placed. Vancomycin paste was placed on the sternal edges. Decannulation was performed and pursestring suture secured. After adequate hemostasis had been obtained, sternum was treated with platelet-rich plasma. The sternum was closed with #7 wire and wires were twisted and buried. Wounds were irrigated and treated with platelet-poor plasma and closed in multiple layers. Needle, sponge, and instrument counts were all reported as correct at the end of the procedure. The patient tolerated the procedure well, was transferred to the intensive care unit in stable, but critical condition. Job ID: [id number]
[2019-12-30] MEDS: Ketorolac Tromethamine 30 MG/ML VIAL IVP SCH ×2 (17:08→23:32)
[2019-12-30 20:30] LABS: Potassium 4.2 mmol/L (3.5-5.1)
[2019-12-30] MEDS: Ondansetron PF 4 MG/2 ML Vial IVP PRN (20:47)
[2019-12-30] MEDS: Atorvastatin Calcium 20 MG TAB PO SCH (20:48)
[2019-12-30] MEDS: Famotidine/PF 20 mg/2ml Vial SLOW IVP SCH (20:48)
[2019-12-30] MEDS: Vancomycin 1 GM in Premix Bag 1 BAG IVPB SCH (20:49)
[2019-12-30] MEDS: traMADol HCl 50 MG TAB PO PRN (23:26)
[2019-12-31 03:58] LABS: #Lymphocytes 0.5 thou/uL (1.20-3.40); #Monocytes 0.7 thou/uL (0.11-0.59); #Neutrophils 12.6 thou/uL (1.40-6.50); %Eosinophils 0.1 % (0.0-10.0); %Lymphocytes 3.3 % (21.0-51.0); %Monocytes 5.2 % (0.0-10.0); %Neutrophils 91.5 % (42.0-75.0); Hemoglobin 11.3 g/dL (12.0-16.0); Mean Corpuscular HGB CONC 33.9 g/dL (32.0-36.0); Mean Corpuscular Hemoglobin 29.7 pg (27.0-31.0); Mean Corpuscular Volume 87.6 fL (78.0-98.0); Mean Platelet Volume 8.5 fL (7.4-10.4); Platelet Count 196 thou/uL (130-400); RBC Distribution Width 12.2 % (11.5-14.5); Red Blood Cell (RBC) Count 3.81 mill/uL (4.20-5.40); White Blood Cell (WBC) Count 13.8 thou/uL (4.8-10.8)
[2019-12-31 04:14] LABS: Anion Gap 8 mmol/L (10-20); BUN (Urea Nitrogen) 6 mg/dL (9.8-20.1); Calc. Creatinine Clearance 63 mL/min (70-130); Calcium 7.9 mg/dL (7.8-10.44); Carbon Dioxide 27 mmol/L (23-31); Chloride 108 mmol/L (98-107); Estimated GFR-MDRD Greater than 90; Glucose 139 mg/dL (80-115); Sodium 139 mmol/L (136-145)
[2019-12-31] MEDS: Ketorolac Tromethamine 30 MG/ML VIAL IVP SCH ×4 (05:11→23:49)
[2019-12-31] MEDS: traMADol HCl 50 MG TAB PO PRN (05:11)
[2019-12-31] MEDS: Ondansetron PF 4 MG/2 ML Vial IVP PRN (05:19)
--- NOTE | 2019-12-31 07:43 | RAD ---
EXAM: XR Chest 1 View Portable PROVIDED CLINICAL HISTORY: Post open heart COMPARISON: 12/30/2019 FINDINGS: Interval extubation. Improvement in left basilar pleural-parenchymal opacity. Additional significant interval change with respect to the prior examination is not apparent. IMPRESSION: As above.
[2019-12-31] MEDS: Vancomycin 1 GM in Premix Bag 1 BAG IVPB SCH (07:55)
[2019-12-31] MEDS: Aspirin 325 MG TAB PO SCH (07:55)
[2019-12-31] MEDS: Famotidine/PF 20 mg/2ml Vial SLOW IVP SCH (07:56)
--- NOTE | 2019-12-31 08:53 | CON ---
DATE OF CONSULTATION: HISTORY OF PRESENT ILLNESS: Christel Urbina is a 64-year-old female with known history of COPD and carotid disease, underwent bypass surgery. Postop, she is extubated and is doing well. She is a former smoker. PAST MEDICAL HISTORY: Pertinent for cardiac disease, previous cardiac stent, COPD. PAST SURGICAL HISTORY: Multiple including colonoscopy, cholecystectomy, tubal ligation, cath. HOME MEDICATIONS: Include; 1. Albuterol inhaler. 2. Xanax. 3. Gabapentin. 4. Plaquenil 200 twice a day. 5. Amlodipine. 6. Pamelor. 7. Meclizine. 8. Lisinopril. 9. Catapres. ALLERGIES: MULTIPLE, PENICILLIN, IBUPROFEN, PROZAC, LEVAQUIN, SULFA, NITROFURANTOIN. SOCIAL HISTORY: Tobacco, former smoker. REVIEW OF SYSTEMS: Otherwise 10 point negative. PHYSICAL EXAMINATION: GENERAL: Postop appears to be in no acute distress. VITAL SIGNS: O2 saturation on 2 L 100%, pulse 80, respiratory rate 18, and blood pressure 140/80. CHEST: Decreased breath sounds. No wheezing. CARDIAC: Normal S1 and S2. No gallops. ABDOMEN: Soft. No masses. IMPRESSION: Moderate chronic obstructive pulmonary disease, obesity stable, status post coronary artery bypass grafting. PLAN: Pulmonary nuñez I have added Dulera to her present neb treatment. Continue aggressive PT. We will follow. This is a consultation note, 70 minutes, 50% direct patient care. Job ID: [id number]
[2019-12-31] MEDS ORDERED: Fluconazole In NaCl,Iso-Osm 200 MG in Premix Bag 1 BAG IVPB SCH (09:00)
[2019-12-31] MEDS ORDERED: Magnesium 2 GM/50 ML 2 GM in Premix Bag 1 BAG IVPB SCH (09:00)
[2019-12-31] MEDS ORDERED: FLU VACC QS2019-20(6MOS UP)/PF 60 MCG/0.5 ML SYRINGE IM ONE (09:00)
[2019-12-31] MEDS ORDERED: Bisacodyl 10 MG SUPP PR PRN (11:36)
[2019-12-31] MEDS ORDERED: Artificial Tears 18 DROP/0.9 ML EA EYE PRN (11:36)
[2019-12-31] MEDS ORDERED: Zolpidem Tartrate 5 MG TAB PO PRN (11:36)
[2019-12-31] MEDS ORDERED: diphenhydrAMINE 25 MG CAP PO PRN (11:36)
[2019-12-31] MEDS ORDERED: Guaifenesin DM 100-10/5 ML UDCUP PO PRN (11:36)
[2019-12-31] MEDS ORDERED: Bisacodyl 5 MG TAB PO PRN (11:36)
[2019-12-31] MEDS ORDERED: Nitroglycerin 0.4 MG TAB (25 Tab Bottle) SL PRN (11:36)
[2019-12-31] MEDS ORDERED: Mag-Al 1200 mg/1200 mg/30 ML UDCUP PO PRN (11:36)
[2019-12-31] MEDS ORDERED: Mineral Oil ENEMA PR PRN (11:36)
[2019-12-31] MEDS: Mometasone/Formoterol 120 PUFF INHALER INH SCH (18:04)
[2019-12-31] MEDS: Famotidine 20 MG TAB PO SCH (20:38)
[2019-12-31] MEDS: Atorvastatin Calcium 20 MG TAB PO SCH (20:38)
[2020-01-01 04:38] LABS: #Eosinphils 0.1 thou/uL (0.0-0.7); #Lymphocytes 1.5 thou/uL (1.20-3.40); #Monocytes 1.1 thou/uL (0.11-0.59); %Basophils 0.4 % (0.0-1.0); %Eosinophils 0.9 % (0.0-10.0); %Lymphocytes 11.9 % (21.0-51.0); %Monocytes 8.8 % (0.0-10.0); Hemoglobin 10.2 g/dL (12.0-16.0); Mean Corpuscular HGB CONC 33.8 g/dL (32.0-36.0); Mean Corpuscular Hemoglobin 30.1 pg (27.0-31.0); Mean Corpuscular Volume 88.9 fL (78.0-98.0); Mean Platelet Volume 8.5 fL (7.4-10.4); Platelet Count 200 thou/uL (130-400); RBC Distribution Width 12.6 % (11.5-14.5); Red Blood Cell (RBC) Count 3.38 mill/uL (4.20-5.40); White Blood Cell (WBC) Count 12.9 thou/uL (4.8-10.8)
[2020-01-01 05:02] LABS: Anion Gap 7 mmol/L (10-20); BUN (Urea Nitrogen) 8 mg/dL (9.8-20.1); Calc. Creatinine Clearance 134 mL/min (70-130); Calcium 8.3 mg/dL (7.8-10.44); Carbon Dioxide 31 mmol/L (23-31); Chloride 104 mmol/L (98-107); Estimated GFR-MDRD Greater than 90; Glucose 112 mg/dL (80-115); Potassium 4.3 mmol/L (3.5-5.1); Sodium 138 mmol/L (136-145)
[2020-01-01] MEDS: Ketorolac Tromethamine 30 MG/ML VIAL IVP SCH ×4 (06:03→23:03)
[2020-01-01] MEDS: Mometasone/Formoterol 120 PUFF INHALER INH SCH ×2 (07:14→18:05)
[2020-01-01] MEDS ORDERED: Aspirin 325 mg Enteric Coated Tablet PO SCH (09:00)
--- NOTE | 2020-01-01 09:44 | PRG ---
DATE OF SERVICE: 01/01/2020 SUBJECTIVE: This morning, the patient is doing well, less pain, less shortness of breath. OBJECTIVE: VITAL SIGNS: blood pressure 138/59, respirations 18, and pulse 80. CHEST: No wheezing or crackles. CARDIAC: Normal S1, S2. No gallops. ABDOMEN: No masses. LABORATORY DATA: Unremarkable. ASSESSMENT AND PLAN: Chronic obstructive pulmonary disease, status post coronary artery bypass grafting. The patient is stable. Disposition as per Cardiology. We will follow. Continue neb treatments and Dulera. Job ID: [id number]
[2020-01-01] MEDS ORDERED: Metoprolol Tartrate 25 MG TAB PO SCH ×2 (09:45→21:00)
[2020-01-01] MEDS: Potassium Chloride 20 MEQ TAB PO SCH ×2 (09:45→10:02)
[2020-01-01] MEDS: Famotidine 20 MG TAB PO SCH ×2 (09:52→20:16)
[2020-01-01] MEDS: Aspirin 325 MG TAB PO SCH (09:53)
[2020-01-01] MEDS: Furosemide 20 MG TAB PO SCH ×2 (10:02→14:53)
[2020-01-01] MEDS ORDERED: Potassium Chloride 20 MEQ TAB PO SCH (17:00)
[2020-01-01] MEDS: Ondansetron PF 4 MG/2 ML Vial IVP PRN (17:53)
[2020-01-01] MEDS: Atorvastatin Calcium 20 MG TAB PO SCH (20:16)
[2020-01-02 05:07] LABS: #Basophils 0.1 thou/uL (0.0-0.2); #Eosinphils 0.4 thou/uL (0.0-0.7); #Lymphocytes 1.9 thou/uL (1.20-3.40); #Neutrophils 6.4 thou/uL (1.40-6.50); %Basophils 0.8 % (0.0-1.0); %Eosinophils 3.9 % (0.0-10.0); %Lymphocytes 19.4 % (21.0-51.0); %Monocytes 10.7 % (0.0-10.0); %Neutrophils 65.2 % (42.0-75.0); Mean Corpuscular HGB CONC 33.5 g/dL (32.0-36.0); Mean Corpuscular Hemoglobin 29.6 pg (27.0-31.0); Mean Corpuscular Volume 88.4 fL (78.0-98.0); Mean Platelet Volume 7.8 fL (7.4-10.4); Platelet Count 204 thou/uL (130-400); RBC Distribution Width 12.6 % (11.5-14.5); Red Blood Cell (RBC) Count 3.37 mill/uL (4.20-5.40); White Blood Cell (WBC) Count 9.8 thou/uL (4.8-10.8)
[2020-01-02] MEDS: Ketorolac Tromethamine 30 MG/ML VIAL IVP SCH ×3 (05:12→17:12)
[2020-01-02 05:28] LABS: Anion Gap 9 mmol/L (10-20); BUN (Urea Nitrogen) 11 mg/dL (9.8-20.1); Calc. Creatinine Clearance 123 mL/min (70-130); Calcium 8.6 mg/dL (7.8-10.44); Carbon Dioxide 31 mmol/L (23-31); Chloride 102 mmol/L (98-107); Estimated GFR-MDRD 88; Glucose 102 mg/dL (80-115); Potassium 4.1 mmol/L (3.5-5.1); Sodium 138 mmol/L (136-145)
[2020-01-02] MEDS: Mometasone/Formoterol 120 PUFF INHALER INH SCH ×2 (07:56→18:36)
[2020-01-02] MEDS: Furosemide 20 MG TAB PO SCH ×2 (08:03→14:05)
[2020-01-02] MEDS: Famotidine 20 MG TAB PO SCH ×2 (08:03→20:28)
[2020-01-02] MEDS ORDERED: Gabapentin 100 MG CAP PO PRN (08:05)
[2020-01-02] MEDS: Aspirin 325 MG TAB PO SCH (08:08)
[2020-01-02] MEDS: ALPRAZolam 0.25 MG TAB PO PRN ×2 (08:44→20:34)
[2020-01-02] MEDS: Hydroxychloroquine Sulfate 200 MG TAB PO SCH ×2 (08:44→20:33)
[2020-01-02] MEDS: Amlodipine 5 MG TAB PO SCH (08:44)
--- NOTE | 2020-01-02 08:52 | RAD ---
RADIOGRAPH CHEST 1 VIEW: Date: 01/02/2020. Time: 3:54 a.m. HISTORY: A 64-year-old female status post CABG. COMPARISON: 12/31/2019. FINDINGS: Right subclavian central venous catheter. Sternotomy wires. Cardiomegaly without congestive heart f ailure. No consolidation. No pulmonary edema or pneumothorax. No interval change. IMPRESSION: 1. Cardiomegaly without congestive heart failure. 2. No interval change. JN [] POS: [facility]
[2020-01-02] MEDS ORDERED: Non-Formulary Item 1 EACH (Amlodipine Besylate [Amlodipine Besylate] 1 TAB) PO SCH (09:00)
--- NOTE | 2020-01-02 09:07 | PRG ---
DATE OF SERVICE: 01/02/2020 SUBJECTIVE: Christel Urbina, status post CABG this morning. No shortness of breath. No pain. No discomfort. OBJECTIVE: VITAL SIGNS: Temperature 98, pulse 80, saturations 96% on room air, and blood pressure 110/66. I's and O's have been good. CHEST: No wheezing or crackles. CARDIAC: Normal S1 and S2. No gallops. ABDOMEN: No masses. ASSESSMENT: 1. Status post coronary artery bypass grafting. 2. Moderate chronic obstructive pulmonary disease, stable. PLAN: She can be transferred out of the ICU. Pulmonary/Critical Care will follow. Continue aggressive neb treatments. chest x-ray shows some chronic scarring in the left base. Job ID: [id number]
[2020-01-02] MEDS: Atorvastatin Calcium 20 MG TAB PO SCH (20:28)
[2020-01-03] MEDS: Mometasone/Formoterol 120 PUFF INHALER INH SCH (07:12)
--- NOTE | 2020-01-03 07:27 | DIS ---
DATE OF ADMISSION: 12/30/2019 DATE OF DISCHARGE: 01/03/2020 DIAGNOSES: 1. Coronary artery disease. 2. Chronic obstructive pulmonary disease. 3. Hypertension. PROCEDURES PERFORMED: Elective coronary artery bypass grafting x3; 1. Left internal mammary artery to left anterior descending. 2. Reverse saphenous vein to ramus. 3. Reverse saphenous vein to obtuse marginal. DESCRIPTION OF HOSPITAL STAY: Ms. Urbina was brought in for an elective bypass as above. She has done well postoperatively. She is being discharged to home in good condition to follow up with me in 2 weeks. DISCHARGE MEDICATIONS: Include; 1. Aspirin 81 mg daily. 2. Amlodipine 2.5 mg daily. 3. Gabapentin 100 mg daily. 4. Plaquenil 200 mg b.i.d. 5. Meclizine 25 mg at bedtime. 6. Pamelor 50 mg q.p.m. 7. Ventolin inhaler. 8. Mometasone inhaler. 9. Tramadol 50 to 100 mg q.6 p.r.n. Job ID: [id number]
[2020-01-03] MEDS: Amlodipine 5 MG TAB PO SCH (07:53)
[2020-01-03] MEDS: Hydroxychloroquine Sulfate 200 MG TAB PO SCH (07:53)
[2020-01-03] MEDS: Aspirin 325 MG TAB PO SCH (07:53)
[2020-01-03] MEDS: Famotidine 20 MG TAB PO SCH (07:54)
[2020-01-03 07:55] VITALS: BP 128/58
--- NOTE | 2020-01-03 08:29 | PRG ---
DATE OF SERVICE: 01/03/2020 SUBJECTIVE: This morning, she is better, less short of breath. OBJECTIVE: VITAL SIGNS: Temperature is 98.2, pulse 100, blood pressure 120/58, saturations 96% on 2 L, and respiratory rate 18. CHEST: No wheezing or crackles. CARDIAC: Normal S1 and S2. No gallops. ABDOMEN: No masses. ASSESSMENT: 1. Coronary artery bypass grafting, stable. 2. Chronic obstructive pulmonary disease, stable. PLAN: Home any time. Follow up in the office in a month. Job ID: [id number]
[2020-01-03 09:20] VITALS: TEMP 98.4
--- NOTE | 2020-01-04 12:32 | PQF ---
TRINA ZELAYA CHARLES H MD [id number] CLINICAL DOCUMENTATION IMPROVEMENT CLARIFICATION FORM: ICD-10 Updated PLEASE DO AN ADDENDUM TO THE PROGRESS NOTE WITH ANY DOCUMENTATION UPDATES OR ADDITIONS AND CARRY THROUGH TO DC SUMMARY. THANK YOU. DATE: 01/04/20 ATTN: DR. SOCRATES HOOVER Please exercise your independent, professional judgment in responding to the clarification form. Clinical indicators are provided on the bottom of this form for your review Please check appropriate box(s): [ ] Chronic Respiratory Failure due to COPD [ x ] No Respiratory Failure - only COPD/Pulmonary Emphysema [ ] Other diagnosis [ ] Unable to determine For continuity of documentation, please document condition throughout progress notes and discharge summary. Thank You. CLINICAL INDICATORS - SIGNS / SYMPTOMS / LABS / RESULTS AND LOCATION IN MR OFFICE H&P (KIKO): * May need prolonged intubation d/t oxygen dependence * Wearing oxygen with sat on 1 liter 97% RISK FACTORS / RESULTS AND LOCATION IN MR OFFICE H&P (KIKO): * Asthma * Pulmonary emphysema * former smoker 3-7 CONSULT (DECKER): COPD - O2 SAT ON 2LNC - 100% TREATMENTS / RESULTS AND LOCATION IN MR Respiratory Assessment: 3-6 - 3-10 Oxygen 2L NC THANK YOU, OANH (This form is maintained as a part of the permanent medical record) 2014 [employer]. All Rights Reserved Oanh Noel RN, [email or web address] Cell Acute Respiratory Failure: ABG pH < 7.35 or > 7.45; Decreased oxygen saturation (<90% room air or < 95% on oxygen); PCO2 > 50 mm Hg; PO2 < 60 mm Hg; Labored or rapid respirations ARDS: Dx Criteria [[place] ARDS]: Respiratory symptoms within one week of a known clinical insult (e.g. shock, infection, surgery, trauma) Bilateral opacities in CXR/Chest CT not due to CHF or fluid MTDD
== END 2020-01-03 10:00 | disposition home health service (06) | DRG 236 ==
LOC: SURG A 12-30 06:56 → CCU 12-30 12:16
PROVIDERS: ADMIT Thoracic Surgery (Cardiothoracic Vascular Surgery); ATTEND Thoracic Surgery (Cardiothoracic Vascular Surgery)
PROC: 021 Heart and Great Vessels, Bypass (ICD-10-PCS; principal; 2019-12-30)
PROC: 02100Z9 Bypass Coronary Artery, One Artery from Left Internal Mammary, Open Approach (ICD-10-PCS; 2019-12-30)
PROC: 06BQ4ZZ Excision of Left Saphenous Vein, Percutaneous Endoscopic Approach (ICD-10-PCS; 2019-12-30)
PROC: 5A1221Z Performance of Cardiac Output, Continuous (ICD-10-PCS; 2019-12-30)
DX: I25.10 Atherosclerotic heart disease of native coronary artery without angina pectoris (principal); I10 Essential (primary) hypertension; F41.9 Anxiety disorder, unspecified; K21.9 Gastro-esophageal reflux disease without esophagitis; J43.9 Emphysema, unspecified; E66.9 Obesity, unspecified; Z79.899 Other long term (current) drug therapy; Z79.82 Long term (current) use of aspirin; Z90.49 Acquired absence of other specified parts of digestive tract; Z88.1 Allergy status to other antibiotic agents; Z88.8 Allergy status to other drugs, medicaments and biological substances; Z87.891 Personal history of nicotine dependence; Z68.33 Body mass index [BMI] 33.0-33.9, adult; Z95.5 Presence of coronary angioplasty implant and graft
CPT/HCPCS: 36416; 36430; 71045; 80048; 82805; 85025; 85610; 85730; 86850; 86900; 86901; 93005; 93010; 93798; 94002; 94640; J0171; J1100; J1642; J1644; J1815; J1885; J2001; J2250; J2370; J2405; J2440; J2704; J2720; J3010; J3370; J3475; J3480; J3490; J7620; P9045; S0017; S0020; S0028

== ENCOUNTER 2020-01-09 09:49 | Emergency (ER) | payer MEDICARE ==
[2020-01-09 11:14] LABS: #Eosinphils 0.2 thou/uL (0.0-0.7); #Lymphocytes 1.2 thou/uL (1.20-3.40); #Monocytes 0.7 thou/uL (0.11-0.59); #Neutrophils 6.1 thou/uL (1.40-6.50); %Basophils 0.4 % (0.0-1.0); %Eosinophils 2.5 % (0.0-10.0); %Lymphocytes 14.3 % (21.0-51.0); %Monocytes 8.5 % (0.0-10.0); %Neutrophils 74.2 % (42.0-75.0); Hemoglobin 11.4 g/dL (12.0-16.0); Mean Corpuscular HGB CONC 32.4 g/dL (32.0-36.0); Mean Corpuscular Hemoglobin 28.2 pg (27.0-31.0); Mean Corpuscular Volume 86.9 fL (78.0-98.0); Mean Platelet Volume 7.7 fL (7.4-10.4); Platelet Count 382 thou/uL (130-400); RBC Distribution Width 12.5 % (11.5-14.5); Red Blood Cell (RBC) Count 4.05 mill/uL (4.20-5.40); White Blood Cell (WBC) Count 8.2 thou/uL (4.8-10.8)
--- NOTE | 2020-01-09 11:20 | RAD ---
XR Chest 1 View Portable HISTORY: Dyspnea, and CABG on 12/30/2019 COMPARISON: 01/02/2020 FINDINGS: Changes of median sternotomy are again seen. There is been interval removal of the right-si ded subclavian central line. The heart is enlarged. There is mild prominence of the pulmonary vascularity. Small pleural effusions are suggested. No pneumothoraces are seen.
[2020-01-09 11:39] LABS: ALT (SGPT) 10 U/L (8-55); AST (SGOT) 20 U/L (5-34); Alkaline Phosphatase 80 U/L (40-110); Anion Gap 13 mmol/L (10-20); BUN (Urea Nitrogen) 5 mg/dL (9.8-20.1); Bilirubin, Total 0.4 mg/dL (0.2-1.2); Calc. Creatinine Clearance 0 mL/min (70-130); Calcium 9.5 mg/dL (7.8-10.44); Carbon Dioxide 27 mmol/L (23-31); Chloride 103 mmol/L (98-107); Estimated GFR-MDRD 89; Globulin 2.5 g/dL (2.4-3.5); Glucose 110 mg/dL (80-115); Potassium 4.1 mmol/L (3.5-5.1); Protein, Total 6.5 g/dL (6.0-8.3); Sodium 139 mmol/L (136-145)
[2020-01-09 12:00] LABS: CKMB 0.7 ng/mL (0-6.6)
== END 2020-01-09 13:30 | disposition home or self-care (01) ==
LOC: ERS 09:49
DX: L03.116 Cellulitis of left lower limb (principal); R11.0 Nausea; F41.9 Anxiety disorder, unspecified; J44.9 Chronic obstructive pulmonary disease, unspecified; M79.7 Fibromyalgia; I25.10 Atherosclerotic heart disease of native coronary artery without angina pectoris; I10 Essential (primary) hypertension; M19.90 Unspecified osteoarthritis, unspecified site; Z87.891 Personal history of nicotine dependence; Z79.899 Other long term (current) drug therapy; Z79.82 Long term (current) use of aspirin
CPT/HCPCS: 36415; 71045; 80053; 82553; 83880; 84484; 85025; 93005

== ENCOUNTER 2021-10-17 09:26 | Outpatient (CLI) | payer MEDICARE | END 2021-10-17 09:27 | disposition home or self-care (01) | LOC: BICCT 09:26 | PROVIDERS: ATTEND Family Medicine | DX: G44.1 Vascular headache, not elsewhere classified (principal) | CPT/HCPCS: 70450 ==

== ENCOUNTER 2021-12-08 09:38 | Emergency (ER) | payer MEDICARE | END 2021-12-08 10:50 | disposition home or self-care (01) | LOC: ERS 09:38 | DX: I10 Essential (primary) hypertension (principal); Z79.82 Long term (current) use of aspirin; Z79.899 Other long term (current) drug therapy | CPT/HCPCS: 99283 ==

== ENCOUNTER 2022-04-21 15:30 | Emergency (ER) | payer MEDICARE ==
[2022-04-21 17:02] LABS: #Eosinphils 0.4 thou/uL (0.0-0.7); #Lymphocytes 1.1 thou/uL (1.20-3.40); #Monocytes 0.4 thou/uL (0.11-0.59); #Neutrophils 4.4 thou/uL (1.40-6.50); %Basophils 0.2 % (0.0-1.0); %Eosinophils 5.8 % (0.0-10.0); %Lymphocytes 16.9 % (21.0-51.0); %Monocytes 6.1 % (0.0-10.0); %Neutrophils 70.9 % (42.0-75.0); Hemoglobin 14.7 g/dL (12.0-16.0); Mean Corpuscular HGB CONC 32.9 g/dL (32.0-36.0); Mean Corpuscular Hemoglobin 28.6 pg (27.0-31.0); Mean Platelet Volume 7.3 fL (7.4-10.4); Platelet Count 293 thou/uL (130-400); RBC Distribution Width 12.6 % (11.5-14.5); Red Blood Cell (RBC) Count 5.12 mill/uL (4.20-5.40); White Blood Cell (WBC) Count 6.2 thou/uL (4.8-10.8)
[2022-04-21 17:08] LABS: Bacteria/HPF None Seen HPF (None Seen); Bilirubin Negative (Negative); Blood, Urine 2+ (Negative); Clarity Clear (Clear); Glucose, Urine (Dipstick) Normal (Negative); Ketone, Urine Negative (Negative); Leukocyte 25 Leu/uL (Negative); Nitrite Negative (Negative); Protein, Urine (Dipstick) 10 mg/dL (Neg-Trace); Squamous Epithelial 0-3 HPF (0-3); Urobilinogen Normal mg/dL (Less than 2); WBC/HPF 0-3 HPF (0-3); pH, Urine 5.5 (5.0-9.0)
[2022-04-21 17:24] LABS: ALT (SGPT) 14 U/L (8-55); AST (SGOT) 27 U/L (5-34); Albumin 4.6 g/dL (3.4-4.8); Alkaline Phosphatase 97 U/L (40-110); Anion Gap 17 mmol/L (10-20); BUN (Urea Nitrogen) 5 mg/dL (9.8-20.1); Bilirubin, Total 0.7 mg/dL (0.2-1.2); Calc. Creatinine Clearance 0 mL/min (70-130); Calcium 9.8 mg/dL (7.8-10.44); Carbon Dioxide 24 mmol/L (23-31); Chloride 102 mmol/L (98-107); Glucose 109 mg/dL (80-115); Potassium 3.3 mmol/L (3.5-5.1); Protein, Total 8.6 g/dL (5.8-8.1); Sodium 140 mmol/L (136-145)
== END 2022-04-21 19:13 | disposition home or self-care (01) ==
LOC: ERS 15:30
DX: N30.00 Acute cystitis without hematuria (principal); I10 Essential (primary) hypertension; J44.9 Chronic obstructive pulmonary disease, unspecified; M19.90 Unspecified osteoarthritis, unspecified site; Z95.1 Presence of aortocoronary bypass graft; Z79.899 Other long term (current) drug therapy; Z79.82 Long term (current) use of aspirin
CPT/HCPCS: 80053; 81003; 81015; 83605; 85025; 87040; 87086; 99283

== ENCOUNTER 2022-08-08 09:34 | Outpatient (CLI) | payer MEDICARE | END 2022-08-08 09:35 | disposition home or self-care (01) | LOC: BICMAMMO 09:34 | PROVIDERS: ATTEND Family Medicine | DX: N95.9 Unspecified menopausal and perimenopausal disorder (principal); M81.0 Age-related osteoporosis without current pathological fracture | CPT/HCPCS: 77080 ==

== ENCOUNTER 2022-08-28 09:52 | Outpatient (CLI) | payer MEDICARE | END 2022-08-28 09:53 | disposition home or self-care (01) | LOC: BICCT 09:52 | PROVIDERS: ATTEND Family Medicine | DX: Z12.2 Encounter for screening for malignant neoplasm of respiratory organs (principal); Z87.891 Personal history of nicotine dependence | CPT/HCPCS: 71271 ==

== ENCOUNTER 2022-11-03 04:27 | Emergency (ER) | payer MEDICARE ==
[2022-11-03 05:43] LABS: #Eosinphils 0.3 thou/uL (0.0-0.7); #Lymphocytes 1.1 thou/uL (1.20-3.40); #Monocytes 0.9 thou/uL (0.11-0.59); #Neutrophils 7.4 thou/uL (1.40-6.50); %Basophils 0.4 % (0.0-1.0); %Eosinophils 2.8 % (0.0-10.0); %Lymphocytes 11.5 % (21.0-51.0); %Monocytes 9.3 % (0.0-10.0); Hemoglobin 14.2 g/dL (12.0-16.0); Mean Corpuscular Hemoglobin 27.9 pg (27.0-31.0); Mean Corpuscular Volume 84.5 fl (78.0-98.0); Mean Platelet Volume 7.9 fL (7.4-10.4); Platelet Count 267 10x3/uL (130-400); RBC Distribution Width 12.9 % (11.5-14.5); Red Blood Cell (RBC) Count 5.08 mill/uL (4.20-5.40); White Blood Cell (WBC) Count 9.7 10x3/uL (4.8-10.8)
[2022-11-03 05:55] LABS: ALT (SGPT) 7 U/L (8-55); AST (SGOT) 20 U/L (5-34); Alkaline Phosphatase 80 U/L (40-110); Anion Gap 15 mmol/L (10-20); BUN (Urea Nitrogen) 6 mg/dL (9.8-20.1); Bilirubin, Total 1.6 mg/dL (0.2-1.2); Calc. Creatinine Clearance 0 mL/min (70-130); Calcium 8.9 mg/dL (7.8-10.44); Carbon Dioxide 24 mmol/L (23-31); Chloride 103 mmol/L (98-107); Estimated GFR 87; Globulin 2.9 g/dL (2.4-3.5); Glucose 107 mg/dL (80-115); Potassium 3.5 mmol/L (3.5-5.1); Protein, Total 6.9 g/dL (5.8-8.1); Sodium 138 mmol/L (136-145)
[2022-11-03 06:06] LABS: Lipase 10 U/L (8-78); Magnesium 1.9 mg/dL (1.6-2.6)
[2022-11-03] MEDS ORDERED: Ipratropium Bromide 2.5 ml Neb ONE (06:38)
[2022-11-03 07:23] LABS: SARS-CoV-2 NAA Rapid Test DETECTED (NotDetected)
[2022-11-03 07:39] LABS: Bacteria/HPF None Seen HPF (None Seen); Bilirubin Negative (Negative); Blood, Urine Negative (Negative); Clarity Clear (Clear); Glucose, Urine (Dipstick) Normal (Negative); Ketone, Urine 10 mg/dL (Negative); Leukocyte 75 Leu/uL (Negative); Nitrite Negative (Negative); Protein, Urine (Dipstick) Negative (Neg-Trace); RBC/HPF 0-3 HPF (0-3); Specific Gravity, Urine 1.009 (1.002-1.036); Squamous Epithelial 0-3 HPF (0-3); Urobilinogen Normal mg/dL (Less than 2)
[2022-11-03 07:57] LABS: Renal Epithelial 0-3 HPF (None Seen); Transitional Epithelial 0-3 HPF (None Seen)
== END 2022-11-03 07:56 | disposition home or self-care (01) ==
LOC: ERS 04:27
DX: U07.1 COVID-19 (principal); I10 Essential (primary) hypertension; J44.9 Chronic obstructive pulmonary disease, unspecified; Z79.82 Long term (current) use of aspirin; Z79.899 Other long term (current) drug therapy
CPT/HCPCS: 0240U; 71045; 80053; 83690; 83735; 83880; 84484; 85025; 93005; 94640; 36415; 81003; 81015

== ENCOUNTER 2022-11-13 19:26 | Inpatient (IN) | payer MEDICARE ==
[~2022-11-13 19:26] MED LIST: Iopamidol-370 76% 500 ML 1 ML ONE
[2022-11-13 20:18] LABS: #Eosinphils 0.2 thou/uL (0.0-0.7); #Monocytes 0.7 thou/uL (0.11-0.59); #Neutrophils 4.7 thou/uL (1.40-6.50); %Basophils 0.2 % (0.0-1.0); %Eosinophils 2.7 % (0.0-10.0); %Lymphocytes 14.8 % (21.0-51.0); %Neutrophils 72.3 % (42.0-75.0); Hemoglobin 13.4 g/dL (12.0-16.0); Mean Corpuscular Hemoglobin 27.8 pg (27.0-31.0); Mean Corpuscular Volume 84.2 fl (78.0-98.0); Mean Platelet Volume 7.5 fL (7.4-10.4); Platelet Count 309 10x3/uL (130-400); RBC Distribution Width 12.8 % (11.5-14.5); Red Blood Cell (RBC) Count 4.82 mill/uL (4.20-5.40); White Blood Cell (WBC) Count 6.5 10x3/uL (4.8-10.8)
[2022-11-13] MEDS ORDERED: Ipratropium/Albuterol 3 ML NEB ONE ×3 (20:21→22:11)
[2022-11-13 20:39] LABS: ALT (SGPT) 7 U/L (8-55); AST (SGOT) 21 U/L (5-34); Albumin 3.9 g/dL (3.4-4.8); Alkaline Phosphatase 77 U/L (40-110); Anion Gap 13 mmol/L (10-20); BUN (Urea Nitrogen) 5 mg/dL (9.8-20.1); Bilirubin, Total 0.4 mg/dL (0.2-1.2); Calc. Creatinine Clearance 0 mL/min (70-130); Calcium 8.9 mg/dL (7.8-10.44); Carbon Dioxide 26 mmol/L (23-31); Chloride 101 mmol/L (98-107); Estimated GFR 93; Globulin 3.4 g/dL (2.4-3.5); Glucose 96 mg/dL (80-115); Potassium 3.5 mmol/L (3.5-5.1); Protein, Total 7.3 g/dL (5.8-8.1); Sodium 136 mmol/L (136-145)
[2022-11-13] MEDS ORDERED: methylPREDNISolone Sod Succ/PF 125 MG/2 ML VIAL ONE (20:50)
[2022-11-13] MEDS ORDERED: Azithromycin 500 MG VIAL ONE (22:57)
[2022-11-13] MEDS ORDERED: Ketorolac Tromethamine 30 MG/ML VIAL ONE (22:57)
[2022-11-13] MEDS ORDERED: ALPRAZolam 0.25 MG TAB ONE (23:17)
[2022-11-13] MEDS ORDERED: Ondansetron ODT 4 MG TAB PO PRN (23:56)
[2022-11-13] MEDS ORDERED: Ondansetron PF 4 MG/2 ML Vial IVP PRN (23:56)
[2022-11-13] MEDS ORDERED: Acetaminophen 325 MG TAB PO PRN (23:56)
[2022-11-14] MEDS ORDERED: Albuterol 200 PUFF (6.7GM INHALER) INH PRN ×2 (00:19→00:42)
[2022-11-14] MEDS ORDERED: VANCOMYCIN 2 GRAM/500 ML BAG 2 GM in Premix Bag 1 BAG IVPB SCH (00:30)
[2022-11-14] MEDS ORDERED: Benzonatate 100 MG CAP PO PRN (00:42)
[2022-11-14 03:14] LABS: Bacteria/HPF None Seen HPF (None Seen); Bilirubin Negative (Negative); Blood, Urine Negative (Negative); Clarity Clear (Clear); Glucose, Urine (Dipstick) Normal (Negative); Ketone, Urine Negative (Negative); Leukocyte 25 Leu/uL (Negative); Nitrite Negative (Negative); Protein, Urine (Dipstick) 20 mg/dL (Neg-Trace); RBC/HPF 0-3 HPF (0-3); Squamous Epithelial 0-3 HPF (0-3); Urobilinogen Normal mg/dL (Less than 2); pH, Urine 5.5 (5.0-9.0)
[2022-11-14 03:16] LABS: Specific Gravity, Urine 1.044 (1.002-1.036)
[2022-11-14 05:08] LABS: #Lymphocytes 0.5 thou/uL (1.20-3.40); #Neutrophils 5.1 thou/uL (1.40-6.50); %Eosinophils 0.1 % (0.0-10.0); %Lymphocytes 8.2 % (21.0-51.0); %Monocytes 0.8 % (0.0-10.0); Hemoglobin 12.4 g/dL (12.0-16.0); Mean Corpuscular HGB CONC 33.1 g/dL (32.0-36.0); Mean Corpuscular Hemoglobin 27.6 pg (27.0-31.0); Mean Corpuscular Volume 83.6 fl (78.0-98.0); Mean Platelet Volume 7.6 fL (7.4-10.4); Platelet Count 298 10x3/uL (130-400); RBC Distribution Width 12.7 % (11.5-14.5); White Blood Cell (WBC) Count 5.6 10x3/uL (4.8-10.8)
[2022-11-14 05:27] LABS: Anion Gap 15 mmol/L (10-20); BUN (Urea Nitrogen) 6 mg/dL (9.8-20.1); Calc. Creatinine Clearance 0 mL/min (70-130); Calcium 8.9 mg/dL (7.8-10.44); Carbon Dioxide 24 mmol/L (23-31); Chloride 103 mmol/L (98-107); Estimated GFR 97; Glucose 172 mg/dL (80-115); Potassium 3.7 mmol/L (3.5-5.1); Sodium 138 mmol/L (136-145)
[2022-11-14] MEDS ORDERED: methylPREDNISolone Sod Succ 40 MG VIAL ONE ×2 (05:29→11:54)
[2022-11-14] MEDS: methylPREDNISolone Sod Succ 40 MG VIAL IVP SCH ×4 (05:37→23:37)
[2022-11-14] MEDS: Mometasone 100 MCG/PUFF (1 INHALER) INH SCH ×2 (07:35→18:51)
[2022-11-14] MEDS ORDERED: Aspirin Chewable 81 MG TAB ONE (08:07)
[2022-11-14] MEDS: Aspirin 81 mg Enteric Coated Tablet PO SCH (08:12)
[2022-11-14] MEDS: Hydroxychloroquine Sulfate 200 MG TAB PO SCH ×2 (08:13→20:50)
[2022-11-14] MEDS ORDERED: traMADol HCl 50 MG TAB PO PRN (08:59)
[2022-11-14] MEDS ORDERED: Gabapentin 100 MG CAP PO PRN (08:59)
[2022-11-14] MEDS ORDERED: Non-Formulary Item 1 EACH (Amlodipine Besylate [Amlodipine Besylate] 2.5 MG Tablet) PO SCH (09:00)
[2022-11-14] MEDS ORDERED: Lisinopril 10 MG TAB ONE (09:49)
[2022-11-14] MEDS: Lisinopril 20 MG TAB PO SCH ×2 (09:52→20:50)
[2022-11-14] MEDS ORDERED: ALPRAZolam 0.5 MG TAB ONE (09:58)
[2022-11-14] MEDS: ALPRAZolam 0.25 MG TAB PO PRN (10:00)
[2022-11-14] MEDS ORDERED: Acetaminophen 325 MG TAB ONE (12:09)
[2022-11-14] MEDS: Ipratropium/Albuterol 3 ML NEB NEB SCH ×2 (14:30→18:49)
[2022-11-14 14:43] VITALS: BMI 36.1
[2022-11-14] MEDS: HYDROcodone/Acetaminophen 5/325 mg Tablet PO PRN (20:50)
[2022-11-14] MEDS: Nortriptyline HCl 25 MG CAP PO SCH (20:50)
[2022-11-14] MEDS: Azithromycin 500 MG in Sodium Chloride 0.9% 250 ML 250 ML IVPB SCH (23:37)
[2022-11-15] MEDS: HYDROcodone/Acetaminophen 5/325 mg Tablet PO PRN (03:21)
[2022-11-15] MEDS: methylPREDNISolone Sod Succ 40 MG VIAL IVP SCH ×5 (06:55→23:50)
[2022-11-15] MEDS: Mometasone 100 MCG/PUFF (1 INHALER) INH SCH ×2 (06:57→18:44)
[2022-11-15] MEDS: Ipratropium/Albuterol 3 ML NEB NEB SCH ×3 (06:57→18:45)
[2022-11-15] MEDS: ALPRAZolam 0.25 MG TAB PO PRN ×2 (08:41→20:26)
[2022-11-15] MEDS: Aspirin 81 mg Enteric Coated Tablet PO SCH (08:42)
[2022-11-15] MEDS: Lisinopril 20 MG TAB PO SCH ×2 (09:52→20:26)
[2022-11-15] MEDS: Amlodipine 5 MG TAB PO SCH (09:53)
[2022-11-15] MEDS: Hydroxychloroquine Sulfate 200 MG TAB PO SCH ×2 (09:54→20:26)
[2022-11-15] MEDS: Nortriptyline HCl 25 MG CAP PO SCH (20:26)
[2022-11-15] MEDS: Nystatin Cream 15 GM TUBE TOP SCH (20:35)
[2022-11-15] MEDS: Azithromycin 500 MG in Sodium Chloride 0.9% 250 ML 250 ML IVPB SCH (23:50)
[2022-11-16 00:37] VITALS: TEMP 97.3
[2022-11-16] MEDS: methylPREDNISolone Sod Succ 40 MG VIAL IVP SCH (05:12)
[2022-11-16] MEDS: Ipratropium/Albuterol 3 ML NEB NEB SCH (06:47)
[2022-11-16] MEDS: Mometasone 100 MCG/PUFF (1 INHALER) INH SCH (06:49)
[2022-11-16 07:14] LABS: #Lymphocytes 0.7 thou/uL (1.20-3.40); #Monocytes 0.4 thou/uL (0.11-0.59); #Neutrophils 11.9 thou/uL (1.40-6.50); %Basophils 0.2 % (0.0-1.0); %Eosinophils 0.1 % (0.0-10.0); %Lymphocytes 5.6 % (21.0-51.0); %Monocytes 3.3 % (0.0-10.0); %Neutrophils 90.9 % (42.0-75.0); Hemoglobin 12.8 g/dL (12.0-16.0); Mean Corpuscular HGB CONC 33.2 g/dL (32.0-36.0); Mean Corpuscular Hemoglobin 28.2 pg (27.0-31.0); Mean Corpuscular Volume 84.7 fl (78.0-98.0); Mean Platelet Volume 7.3 fL (7.4-10.4); Platelet Count 365 10x3/uL (130-400); RBC Distribution Width 12.7 % (11.5-14.5); Red Blood Cell (RBC) Count 4.55 mill/uL (4.20-5.40); White Blood Cell (WBC) Count 13.1 10x3/uL (4.8-10.8)
[2022-11-16 07:38] LABS: Anion Gap 13 mmol/L (10-20); BUN (Urea Nitrogen) 11 mg/dL (9.8-20.1); Calc. Creatinine Clearance 132 mL/min (70-130); Calcium 9.4 mg/dL (7.8-10.44); Carbon Dioxide 24 mmol/L (23-31); Chloride 104 mmol/L (98-107); Estimated GFR 97; Glucose 122 mg/dL (80-115); Potassium 4.1 mmol/L (3.5-5.1); Sodium 137 mmol/L (136-145)
[2022-11-16] MEDS: ALPRAZolam 0.25 MG TAB PO PRN (08:19)
[2022-11-16] MEDS: Nystatin Cream 15 GM TUBE TOP SCH (09:39)
[2022-11-16] MEDS: Hydroxychloroquine Sulfate 200 MG TAB PO SCH (09:39)
[2022-11-16] MEDS: Aspirin 81 mg Enteric Coated Tablet PO SCH (09:39)
[2022-11-16] MEDS: Amlodipine 5 MG TAB PO SCH (09:39)
[2022-11-16] MEDS: Lisinopril 20 MG TAB PO SCH (09:40)
[2022-11-16 12:28] VITALS: BP 137/72
== END 2022-11-16 12:30 | disposition home or self-care (01) | DRG 193 ==
LOC: ERS 19:26 → ERHOLD 23:07 → T4-B 11-14 15:13 → OBSVTOIN 11-14 16:23
PROVIDERS: ADMIT Internal Medicine; ATTEND Internal Medicine
DX: J18.9 Pneumonia, unspecified organism (principal); J96.21 Acute and chronic respiratory failure with hypoxia; J43.9 Emphysema, unspecified; U09.9 Post COVID-19 condition, unspecified; I25.10 Atherosclerotic heart disease of native coronary artery without angina pectoris; E78.5 Hyperlipidemia, unspecified; K21.9 Gastro-esophageal reflux disease without esophagitis; I10 Essential (primary) hypertension; M06.9 Rheumatoid arthritis, unspecified; M79.7 Fibromyalgia; G43.909 Migraine, unspecified, not intractable, without status migrainosus; L40.9 Psoriasis, unspecified; Z95.1 Presence of aortocoronary bypass graft; Z99.81 Dependence on supplemental oxygen; Z88.1 Allergy status to other antibiotic agents; Z88.2 Allergy status to sulfonamides; Z88.8 Allergy status to other drugs, medicaments and biological substances; Z79.899 Other long term (current) drug therapy; Z79.82 Long term (current) use of aspirin; Z95.5 Presence of coronary angioplasty implant and graft; Z98.49 Cataract extraction status, unspecified eye; Z90.49 Acquired absence of other specified parts of digestive tract; Z90.710 Acquired absence of both cervix and uterus; Z98.51 Tubal ligation status; Z98.890 Other specified postprocedural states; Z82.49 Family history of ischemic heart disease and other diseases of the circulatory system; Z83.6 Family history of other diseases of the respiratory system; Z87.891 Personal history of nicotine dependence
CPT/HCPCS: 36415; 71045; 71275; 80048; 80053; 81003; 81015; 83605; 83880; 84145; 84484; 85025; 87040; 87804; 93005; 94640; J0456; J1650; J1885; J2920; J2930; J7050; J7620; Q9967

== ENCOUNTER 2023-10-13 08:44 | Outpatient (CLI) | payer MEDICARE ==
[2023-10-13 10:19] LABS: #Basophils 0.1 10x3/uL (0.0-0.2); #Eosinphils 0.5 10x3/uL (0.0-0.5); #Monocytes 0.6 10x3/uL (0.0-1.1); #Neutrophils 5.1 10x3/uL (1.5-8.4); %Basophils 1.4 % (0.0-2.0); %Eosinophils 6.4 % (0.0-6.0); %Lymphocytes 17.1 % (18.0-47.0); %Monocytes 7.6 % (0.0-10.0); %Neutrophils 67.1 % (40.0-75.0); Hematocrit 41.3 % (34.9-44.5); Hemoglobin 13.3 g/dL (12.0-15.5); Mean Corpuscular HGB CONC 32.2 g/dL (32.0-36.0); Mean Corpuscular Hemoglobin 26.9 pg (27.0-33.0); Mean Corpuscular Volume 83.4 fl (81.6-98.3); Mean Platelet Volume 9.7 fl (7.4-10.4); Platelet Count 319 10x3/uL (150-450); RBC Distribution Width 13.5 % (11.5-14.5); Red Blood Cell (RBC) Count 4.95 10x6/uL (3.90-5.03); White Blood Cell (WBC) Count 7.6 10x3/uL (3.5-10.5)
[2023-10-13 10:30] LABS: Anion Gap 13 mmol/L (10-20); BUN (Urea Nitrogen) 6 mg/dL (9.8-20.1); Calc. Creatinine Clearance 0 mL/min (70-130); Calcium 9.3 mg/dL (7.8-10.44); Carbon Dioxide 28 mmol/L (23-31); Chloride 104 mmol/L (98-107); Estimated GFR 82; Glucose 110 mg/dL (80-115); Potassium 4.3 mmol/L (3.5-5.1); Sodium 141 mmol/L (136-145)
== END 2023-10-13 08:45 | disposition home or self-care (01) ==
LOC: LABBT 08:44
PROVIDERS: ATTEND Specialist
DX: Z01.818 Encounter for other preprocedural examination (principal); N64.52 Nipple discharge
CPT/HCPCS: 71046; 80048; 85025; 93005; 93010

== ENCOUNTER 2024-03-15 13:56 | Emergency (ER) | payer MEDICARE ==
[2024-03-15] MEDS ORDERED: Ondansetron ODT 4 MG TAB ONE (16:03)
[2024-03-15 18:32] LABS: #Basophils 0.09 10x3/uL (0.0-0.2); %Basophils 0.8 % (0.0-1.0); %Eosinophils 2.7 % (0.0-10.0); %Lymphocytes 10.8 % (21.0-51.0); %Monocytes 6.4 % (0.0-10.0); Hematocrit 39.4 % (36.0-47.0); Hemoglobin 12.9 g/dL (12.0-16.0); Mean Corpuscular HGB CONC 32.7 g/dL (32.0-36.0); Mean Corpuscular Hemoglobin 26.3 pg (27.0-31.0); Mean Corpuscular Volume 80.2 fL (78.0-98.0); Mean Platelet Volume 9.7 fL (7.4-10.4); Platelet Count 309 10x3/uL (130-400); RBC Distribution Width 13.9 % (11.5-14.5); Red Blood Cell (RBC) Count 4.91 mill/uL (4.20-5.40)
[2024-03-15 18:45] LABS: Bacteria/HPF None Seen HPF (None Seen); Bilirubin Negative (Negative); Blood, Urine 1+ (Negative); CAUTI Indications for Culture Dysuria,urgency,freq; Clarity Clear (Clear); Glucose, Urine (Dipstick) Normal (Negative); Ketone, Urine Negative (Negative); Leukocyte 500 Leu/uL (Negative); Nitrite Negative (Negative); Protein, Urine (Dipstick) 10 mg/dL (Neg-Trace); Specific Gravity, Urine 1.012 (1.002-1.036); Squamous Epithelial 0-3 HPF (0-3); Urobilinogen Normal mg/dL (Less than 2); WBC/HPF Greater than 50 HPF (0-3); pH, Urine 5.5 (5.0-9.0)
[2024-03-15 18:49] LABS: Urine Culture Reflex Yes Yes
[2024-03-15 20:39] LABS: Sodium 142 mmol/L (136-145)
[2024-03-15 20:40] LABS: Albumin 3.7 g/dL (3.4-4.8); Calcium 9.2 mg/dL (7.8-10.44); Chloride 108 mmol/L (98-107); Potassium 3.7 mmol/L (3.5-5.1)
[2024-03-15 20:41] LABS: Globulin 3.6 g/dL (2.4-3.5); Glucose 97 mg/dL (80-115); Protein, Total 7.3 g/dL (5.8-8.1)
[2024-03-15] MEDS ORDERED: cefTRIAXone (ROCEPHIN) 2 GM VIAL ONE (20:41)
[2024-03-15] MEDS ORDERED: Sodium Chloride 0.9% 100 ML ONE (20:41)
[2024-03-15 20:42] LABS: Anion Gap 15 mmol/L (10-20); Carbon Dioxide 23 mmol/L (23-31)
[2024-03-15 20:43] LABS: Bilirubin, Total 0.5 mg/dL (0.2-1.2)
[2024-03-15 20:44] LABS: Alkaline Phosphatase 94 U/L (40-110); Lipase 18 U/L (8-78)
[2024-03-15 20:45] LABS: BUN (Urea Nitrogen) 8 mg/dL (9.8-20.1); Calc. Creatinine Clearance 0 mL/min (70-130); Estimated GFR 79
[2024-03-15 20:46] LABS: ALT (SGPT) 13 U/L (8-55); AST (SGOT) 24 U/L (5-34)
== END 2024-03-15 22:57 | disposition home or self-care (01) ==
LOC: ERS 13:56
DX: N39.0 Urinary tract infection, site not specified (principal); I10 Essential (primary) hypertension; J44.9 Chronic obstructive pulmonary disease, unspecified
CPT/HCPCS: 36415; 71045; 80053; 81001; 83605; 83690; 83735; 83880; 84484; 85025; 87086; 93005; 94760; J0696; J3490; Q0162

== ENCOUNTER 2025-08-15 20:14 | Emergency (ER) | payer MEDICARE ==
[~2025-08-15 20:14] MED LIST changes: -Iopamidol-370 76% 500 ML 1 ML ONE; +Iopamidol-370 76% 500 ML MDV (1 ML CHARGE) ONE
[2025-08-15 20:48] LABS: #Basophils 0.12 10x3/uL (0.0-0.2); #Eosinophils 0.28 10x3/uL (0.0-0.7); #Monocytes 0.85 10x3/uL (0.11-0.59); #Neutrophils 9.98 10x3/uL (1.40-6.50); %Basophils 0.9 % (0.0-1.0); %Eosinophils 2.2 % (0.0-10.0); %Lymphocytes 11.1 % (21.0-51.0); %Monocytes 6.7 % (0.0-10.0); %Neutrophils 78.7 % (42.0-75.0); Hematocrit 36.2 % (36.0-47.0); Hemoglobin 11.5 g/dL (12.0-16.0); Mean Corpuscular Hemoglobin 25.0 pg (27.0-31.0); Mean Corpuscular Volume 78.7 fL (78.0-98.0); Platelet Count 401 10x3/uL (130-400); Red Blood Cell (RBC) Count 4.60 mill/uL (4.20-5.40); White Blood Cell (WBC) Count 12.69 10x3/uL (4.8-10.8)
[2025-08-15 21:05] LABS: ALT (SGPT) 12 U/L (Less than 34); AST (SGOT) 28 U/L (11-34); Albumin 3.1 g/dL (3.1-4.5); Alkaline Phosphatase 94 U/L (40-110); Anion Gap 15 mmol/L (10-20); BUN (Urea Nitrogen) 7 mg/dL (9.8-20.1); Bilirubin, Total 0.5 mg/dL (0.3-1.2); Calc. Creatinine Clearance 0 mL/min (70-130); Calcium 9.0 mg/dL (7.8-10.44); Carbon Dioxide 27 mmol/L (23-31); Chloride 103 mmol/L (98-107); Globulin 3.9 g/dL (2.4-3.5); Glucose 99 mg/dL (80-115); Potassium 3.7 mmol/L (3.5-5.1); Sodium 141 mmol/L (136-145)
[2025-08-15] MEDS ORDERED: Pantoprazole 40 MG VIAL ONE (21:07)
[2025-08-15 21:14] LABS: INR-International Normal Ratio 1.0; Prothrombin Time 13.4 sec (12.0-14.7)
== END 2025-08-15 23:28 | disposition home or self-care (01) ==
LOC: ERS 20:14
DX: K52.9 Noninfective gastroenteritis and colitis, unspecified (principal); I10 Essential (primary) hypertension; K21.9 Gastro-esophageal reflux disease without esophagitis; J44.89 Other specified chronic obstructive pulmonary disease; Z87.891 Personal history of nicotine dependence; Z95.1 Presence of aortocoronary bypass graft; Z95.5 Presence of coronary angioplasty implant and graft; Z79.899 Other long term (current) drug therapy; Z79.51 Long term (current) use of inhaled steroids; Z79.82 Long term (current) use of aspirin
CPT/HCPCS: 74177; 80053; 85025; 85610; 86850; 86900; 86901; 94760; J2470; Q9967; 36415; 96361; 96374